=== PATIENT | male | born 1970 | race Two or more races ===

== ENCOUNTER 2023-10-03 15:40 | Inpatient (IN) | payer SELFPAY ==
[~2023-10-03] VITALS: Ht 170.2 cm; Wt 121.5 kg
[2023-10-03] MEDS ORDERED: ASPirin 325 MG TAB PO ONE (16:00)
[2023-10-03 16:24] LABS: Basophils # (auto) 0 10 ^3/uL (0-0.2); Basophils % (auto) 0.4 % (0.0-2.0); Eosinophils # (auto) 0.1 10 ^3/uL (0-0.8); Hemoglobin 15.3 g/dL (13.5-17.5); Lymphocytes # (auto) 4.2 10 ^3/uL (0.4-5.4); Lymphocytes % (auto) 36.1 % (10.0-50.0); Mean Corpuscular Hemoglobin 29.5 pg (28.0-32.0); Mean Corpuscular Hgb Conc. 33.3 g/dL (32.0-36.0); Mean Corpuscular Volume 88.6 fL (80.0-100.0); Monocytes # (auto) 1.1 10 ^3/uL (0-1.3); Monocytes % (auto) 9.2 % (0.0-12.0); Neutrophils # (auto) 6.2 10 ^3/uL (1.6-8.6); Neutrophils % (auto) 53.3 % (37.0-80.0); Nucleated Red Blood Cells % 0.2 %; Red Blood Cells 5.19 10^6/uL (4.5-5.90); Red Cell Distribution Width 13.8 % (11.8-14.3); White Blood Cell 11.7 10^3/uL (4.4-10.8)
[2023-10-03 16:41] LABS: Alanine Aminotransferase 26 U/L (7-40); Albumin 4.5 g/dL (3.2-4.8); Alkaline Phosphatase 68 U/L (46-116); Anion Gap 8 (5-15); Aspartate Aminotransferase 19 U/L (13-40); BUN/Creatinine Ratio 18.9 (10.0-20.0); Blood Urea Nitrogen 17 mg/dL (9-23); Calcium 9.7 mg/dL (8.5-10.1); Carbon Dioxide 26 mmol/L (20-30); Chloride 103 mmol/L (98-107); Glucose 94 mg/dL (74-106); Potassium 4.3 mmol/L (3.5-5.1); Sodium 137 mmol/L (136-145)
[2023-10-03 16:42] LABS: Bilirubin, Total 0.4 mg/dL (0.2-1.0)
[2023-10-03] MEDS ORDERED: NITROGLYCERIN 0.4 MG SL TAB SL ONE (17:00)
[2023-10-03] MEDS ORDERED: MORPHINE SULFATE INJ 2 MG/ml SYRG IV PRN (20:45)
[2023-10-03] MEDS ORDERED: HYDROcodone-ACET 5/325MG TAB PO PRN (20:45)
[2023-10-03] MEDS ORDERED: ONDANSETRON HCL 4 MG/2 ML VIAL IV PRN (20:45)
[2023-10-03] MEDS ORDERED: NITROGLYCERIN 0.4 MG SL TAB SL PRN (20:45)
[2023-10-03] MEDS ORDERED: ACETAMINOPHEN 325 MG TAB PO PRN (20:45)
[2023-10-03] MEDS ORDERED: DOCUSATE SOD 100 MG CAP PO PRN (20:45)
[2023-10-03] MEDS ORDERED: ATOR40TA52 PO (21:41)
[2023-10-03] MEDS ORDERED: MET25T PO (21:41)
[2023-10-03] MEDS ORDERED: CLOP75TA70 PO (21:41)
[2023-10-03] MEDS ORDERED: ASPI-628 PO (21:41)
[2023-10-03] MEDS ORDERED: METOPROLOL TARTRATE 25 MG TAB PO SCH (22:00)
[2023-10-03] MEDS ORDERED: ATORVASTATIN 20 MG TAB PO SCH (22:00)
[2023-10-04 06:56] LABS: Basophils # (auto) 0.1 10 ^3/uL (0-0.2); Basophils % (auto) 0.5 % (0.0-2.0); Eosinophils # (auto) 0.1 10 ^3/uL (0-0.8); Eosinophils % (auto) 1.3 % (0.0-7.0); Hematocrit 44.2 % (41.0-53.0); Hemoglobin 14.9 g/dL (13.5-17.5); Lymphocytes # (auto) 3.5 10 ^3/uL (0.4-5.4); Lymphocytes % (auto) 33.1 % (10.0-50.0); Mean Corpuscular Hemoglobin 30.1 pg (28.0-32.0); Mean Corpuscular Hgb Conc. 33.7 g/dL (32.0-36.0); Mean Corpuscular Volume 89.3 fL (80.0-100.0); Monocytes % (auto) 9.6 % (0.0-12.0); Neutrophils # (auto) 5.9 10 ^3/uL (1.6-8.6); Neutrophils % (auto) 55.5 % (37.0-80.0); Nucleated Red Blood Cells % 0.1 %; Red Blood Cells 4.95 10^6/uL (4.5-5.90); White Blood Cell 10.5 10^3/uL (4.4-10.8)
[2023-10-04 07:04] LABS: Alanine Aminotransferase 23 U/L (7-40); Alkaline Phosphatase 60 U/L (46-116); Anion Gap 9 (5-15); Calcium 9.5 mg/dL (8.5-10.1); Carbon Dioxide 21 mmol/L (20-30); Chloride 104 mmol/L (98-107); Sodium 134 mmol/L (136-145)
[2023-10-04 07:06] LABS: BUN/Creatinine Ratio 9.8 (10.0-20.0); Blood Urea Nitrogen 9 mg/dL (9-23); Glucose 103 mg/dL (74-106)
[2023-10-04 07:08] LABS: Albumin 4.4 g/dL (3.2-4.8); Aspartate Aminotransferase 17 U/L (13-40)
[2023-10-04 07:09] LABS: Bilirubin, Total 0.8 mg/dL (0.2-1.0); Total Protein 7.3 g/dL (5.7-8.2)
[2023-10-04 08:29] VITALS: PULSE 68; RESP 18; O2SAT 98
[2023-10-04 09:00] VITALS: BP 148/100; PULSE 88; RESP 20; TEMP 98.4; O2SAT 95
[2023-10-04] MEDS: ASPirin-EC 81 mg tab PO SCH (09:33)
[2023-10-04] MEDS: CLOPIDOGREL BISULFATE 75 MG TAB PO SCH (09:33)
[2023-10-04] MEDS: METOPROLOL TARTRATE 25 MG TAB PO SCH ×2 (09:34→21:20)
[2023-10-04] MEDS ORDERED: ENOXAPARIN SOD 40 MG/0.4 ML SYRINGE SC SCH (10:00)
[2023-10-04 11:15] LABS: COVID19 ANTIGEN SOFIA FIA NEGATIVE (NEGATIVE)
[2023-10-04 11:15] LABS: Rapid Influenza A Negative (Negative); Rapid Influenza B Negative (Negative)
[2023-10-04 11:47] LABS: INR 1.06 (0.9-1.15); Partial Thromboplastin Time 33.8 SEC (24.5-34.5); Prothrombin Time 11.1 sec (9.3-11.8)
[2023-10-04 13:00] VITALS: BP 144/81; PULSE 74; RESP 20; TEMP 98; O2SAT 99
[2023-10-04] MEDS ORDERED: LISINOPRIL 5 MG TAB PO ONE (16:00)
[2023-10-04 17:00] VITALS: BP 150/102; PULSE 75; RESP 18; TEMP 98; O2SAT 93
[2023-10-04 20:00] VITALS: PULSE 68; PULSE 95; RESP 18; O2SAT 95
[2023-10-04 22:00] VITALS: BP 135/84; PULSE 79; RESP 20; TEMP 98.3; O2SAT 99
[2023-10-04] MEDS ORDERED: ATORVASTATIN 20 MG TAB PO SCH (22:00)
[2023-10-05 05:00] VITALS: BP 120/87; PULSE 86; RESP 18; TEMP 97.4; O2SAT 100
[2023-10-05 05:54] LABS: Calcium 9.4 mg/dL (8.5-10.1); Chloride 106 mmol/L (98-107); Potassium 4.4 mmol/L (3.5-5.1); Sodium 139 mmol/L (136-145)
[2023-10-05 05:55] LABS: Anion Gap 8 (5-15); Carbon Dioxide 25 mmol/L (20-30)
[2023-10-05 06:00] LABS: BUN/Creatinine Ratio 16.9 (10.0-20.0); Blood Urea Nitrogen 15 mg/dL (9-23); Glucose 101 mg/dL (74-106); Triglycerides 156 mg/dL (< 150)
[2023-10-05 06:01] LABS: Basophils # (auto) 0 10 ^3/uL (0-0.2); Basophils % (auto) 0.6 % (0.0-2.0); Eosinophils # (auto) 0.1 10 ^3/uL (0-0.8); Eosinophils % (auto) 1.5 % (0.0-7.0); Hemoglobin 14.4 g/dL (13.5-17.5); LDL Cholesterol 128 mg/dL (< 100); Lymphocytes # (auto) 2.4 10 ^3/uL (0.4-5.4); Lymphocytes % (auto) 29.2 % (10.0-50.0); Mean Corpuscular Hemoglobin 29.8 pg (28.0-32.0); Mean Corpuscular Hgb Conc. 33.5 g/dL (32.0-36.0); Mean Corpuscular Volume 89.1 fL (80.0-100.0); Monocytes # (auto) 0.8 10 ^3/uL (0-1.3); Monocytes % (auto) 10.1 % (0.0-12.0); Neutrophils # (auto) 4.9 10 ^3/uL (1.6-8.6); Neutrophils % (auto) 58.6 % (37.0-80.0); Red Blood Cells 4.82 10^6/uL (4.5-5.90); Red Cell Distribution Width 13.6 % (11.8-14.3); White Blood Cell 8.3 10^3/uL (4.4-10.8)
[2023-10-05 06:02] LABS: Cholesterol 186 mg/dL (< 200); HDL Cholesterol 31 mg/dL (40-59)
[2023-10-05] MEDS ORDERED: ADENOSINE 102 MG in GIVE UN-DILUTED 0 ML IV ONE (07:45)
[2023-10-05 08:00] VITALS: PULSE 68; PULSE 83; RESP 18; O2SAT 95
[2023-10-05 09:25] VITALS: BP 127/81; PULSE 72; RESP 20; TEMP 97.9; O2SAT 94
[2023-10-05] MEDS ORDERED: LISINOPRIL 5 MG TAB PO SCH (10:00)
[2023-10-05] MEDS: CLOPIDOGREL BISULFATE 75 MG TAB PO SCH (10:00)
[2023-10-05 10:21] VITALS: BP 140/78; PULSE 64; TEMP 36.6
[2023-10-05] MEDS: METOPROLOL TARTRATE 25 MG TAB PO SCH (11:16)
[2023-10-05] MEDS: ASPirin-EC 81 mg tab PO SCH (11:17)
[2023-10-05 12:03] LABS: Magnesium 1.9 mg/dL (1.6-2.6)
[2023-10-05 12:26] VITALS: BP 140/93; PULSE 76; RESP 20; TEMP 97.5; O2SAT 96
[2023-10-05 17:03] VITALS: BP 146/88; PULSE 82; RESP 20; TEMP 98.2; O2SAT 94
[2023-10-05] MEDS ORDERED: ATORVASTATIN 20 MG TAB PO SCH (22:00)
== END 2023-10-05 18:00 | disposition home or self-care (01) | DRG 313 ==
LOC: ER 15:40 → TELE 20:34 → TELE-WESTW 10-04 09:09
PROVIDERS: ADMIT Internal Medicine; ATTEND Emergency Medicine
DX: R07.89 Other chest pain (principal); Z68.41 Body mass index [BMI] 40.0-44.9, adult; D72.829 Elevated white blood cell count, unspecified; E66.01 Morbid (severe) obesity due to excess calories; Z20.822 Contact with and (suspected) exposure to COVID-19; I10 Essential (primary) hypertension; I25.10 Atherosclerotic heart disease of native coronary artery without angina pectoris; I25.2 Old myocardial infarction; Z91.199 Patient's noncompliance with other medical treatment and regimen due to unspecified reason; Z79.82 Long term (current) use of aspirin; Z79.899 Other long term (current) drug therapy; Z95.5 Presence of coronary angioplasty implant and graft
CPT/HCPCS: 36415; 71045; 78452; 80048; 80053; 80061; 83036; 83735; 84484; 85025; 85379; 85610; 85730; 87081; 87426; 87804; 93005; 93017; 93306; G0378; J0153

== ENCOUNTER 2025-02-19 13:55 | Inpatient (IN) | payer MEDICAID ==
[~2025-02-19] VITALS: Ht 170.2 cm; Wt 127.6 kg
[2025-02-19] MEDS: METOPROLOL TARTRATE 25 MG TAB PO SCH (03:00)
[~2025-02-19 13:55] MED LIST: ASPI-628 PO; ATOR40TA52 PO; CLOP75TA70 PO; MET25T PO
[2025-02-19 14:20] LABS: Basophils # (auto) 0.1 10 ^3/uL (0-0.2); Basophils % (auto) 0.7 % (0.0-2.0); Eosinophils # (auto) 0.1 10 ^3/uL (0-0.8); Eosinophils % (auto) 0.9 % (0.0-7.0); Hematocrit 45.6 % (41.0-53.0); Hemoglobin 15.5 g/dL (13.5-17.5); Lymphocytes # (auto) 2.4 10 ^3/uL (0.4-5.4); Lymphocytes % (auto) 23.1 % (10.0-50.0); Mean Corpuscular Hemoglobin 29.8 pg (28.0-32.0); Mean Corpuscular Volume 87.6 fL (80.0-100.0); Monocytes # (auto) 1.1 10 ^3/uL (0-1.3); Monocytes % (auto) 9.9 % (0.0-12.0); Neutrophils # (auto) 6.9 10 ^3/uL (1.6-8.6); Neutrophils % (auto) 65.4 % (37.0-80.0); Nucleated Red Blood Cells % 0.1 %; Platelet Count (auto) 227 10^3/uL (140-450); Red Blood Cells 5.21 10^6/uL (4.5-5.90); Red Cell Distribution Width 13.9 % (11.8-14.3); White Blood Cell 10.6 10^3/uL (4.4-10.8)
[2025-02-19 14:28] LABS: Chloride 107 mmol/L (98-107)
[2025-02-19 14:29] LABS: Anion Gap 8 (5-15); Carbon Dioxide 26 mmol/L (20-31); Sodium 141 mmol/L (136-145)
[2025-02-19 14:30] LABS: Calcium 9.8 mg/dL (8.7-10.4)
[2025-02-19] MEDS: ASPirin 325 MG TAB PO ONE (14:30)
[2025-02-19] MEDS: NITROGLYCERIN 0.4 MG SL TAB SL ONE (14:30)
--- NOTE | 2025-02-19 14:32 | ED.PDOC ---
HPI Comments 55 y/o M, with PMHx of CAD, HTN, HLD, and OK presents to the ED for CC of chest pain. Patient states, he has been experiencing substernal non-radiating chest pain onset, last night (02/18/25). Patient reports, symptoms to worsen with light exertion causing shortness of breath. Patient denies palpitations, headache, dizziness, nausea, or vomiting. No other symptoms or modifying factors present at this time. Chief Complaint: Chest Pain Time Seen by MD: 14:23 Primary Care Provider: NONE Reviewed Notes: Nurses Notes, Medications, Allergies Allergies: Coded Allergies: NO KNOWN ALLERGIES (Unverified , 10/03/23) Home Meds Reported Medications Aspirin (Aspirin Adult Low Dose) 81 Mg Tab, 1 TAB PO DAILY 10/03/23 Atorvastatin Calcium (ATORVASTATIN CALCIUM) 40 Mg Tab, 1 TAB PO DAILY 10/03/23 Metoprolol Tartrate (Lopressor) 25 Mg Tb, 0.5 TAB PO BID 10/03/23 Clopidogrel Bisulfate (CLOPIDOGREL) 75 Mg Tab, 1 TAB PO DAILY 10/03/23 Information Source: Patient Mode of Arrival: Ambulatory Severity: Moderate Timing: Hours Duration: Since onset Prehospital treatment: None Location: Substernal Radiation: No Radiation Onset: At Rest Cardiac Risk Factors: HTN PE Risk Factors: None History of: OK, Aspirin Modifying Factors: Nothing Associated Signs and Symptoms: SOB Past Medical History PAST MEDICAL HISTORY: CAD, High Lipids, HTN, OK Surgical History: PTCA Family History Family History: Unknown Social History Smoker: Non-Smoker Alcohol: Denies ETOH Use Drugs: Denies Drug Use Lives In: Home Constitutional: denies: chills, diaphoresis, fatigue, fever, malaise, sweats, weakness, others EENTM: denies: blurred vision, double vision, ear bleeding, ear discharge, ear drainage, ear pain, ear ringing, eye pain, eye redness, hearing loss, mouth pain, mouth swelling, nasal discharge, nose bleeding, nose congestion, nose pain, photophobia, tearing, throat pain, throat swelling, voice changes, others Respiratory: reports: shortness of breath; denies: cough, hemoptysis, orthopnea, SOB at rest, SOB with excertion, stridor, wheezing, others Cardiovascular: reports: chest pain; denies: dizzy spells, diaphoresis, Dyspnea on exertion, edema, irregular heart beat, left arm pain, lightheadedness, palpitations, PND, syncope, others Gastrointestinal: denies: abdomen distended, abdominal pain, blood streaked bowels, constipated, diarrhea, dysphagia, difficulty swallowing, hematemesis, melena, nausea, poor appetite, poor fluid intake, rectal bleeding, rectal pain, vomiting, others Genitourinary: denies: burning, dysuria, flank pain, frequency, hematuria, incontinence, penile discharge, penile sore, pain, testicle pain, testicle swelling, urgency, others Neurological: denies: dizziness, fainting, headache, left sided numbness, left sided weakness, numbness, paresthesia, pre-existing deficit, right sided num bness, right sided weakness, seizure, speech problems, tingling, tremors, weakness, others Musculoskeletal: denies: back pain, gout, joint pain, joint swelling, muscle pain, muscle stiffness, neck pain, others Integumetry: denies: bruises, change in color, change in hair/nails, dryness, laceration, lesions, lumps, rash, wounds, others Allergic/Immunocompromised: denies: Difficulty Healing, Frequent Infections, Hives, Itching, others Hematologic/Lymphatic: denies: anemia, blood clots, easy bleeding, easy bruising, swollen glands, others Endocrine: denies: excessive hunger, excessive sweating, excessive thirst, excessive urination, flushing, intolerance to cold, intolerance to heat, unexplained weight gain, unexplained weight loss, others Psychiatric: denies: anxiety, bipolar disorder, depression, hopeless, panic disorder, schizophrenia, sleepless, suicidal, others All Other Systems: Reviewed and Negative Physical Exam General Appearance: Moderate Distress HEENT: Normal ENT Inspection, Pharynx Normal, TMs Normal Neck: Full Range of Motion, Non-Tender, Normal, Normal Inspection Respiratory: Chest Non-Tender, Lungs Clear, No Accessory Muscle Use, No Respiratory Distress, Normal Breath Sounds Cardiovascular: No Edema, No JVD, No Murmur, No Gallop, Normal Peripheral Pulses, Regular Rate/Rhythm Breast Exam: Deferred Gastrointestinal: No Organomegaly, Non Tender, No Pulsatile Mass, Normal Bowel Sounds, Soft Genitalia: Deferred Pelvic: Deferred Rectal: Deferred Extremities: No calf tenderness, Normal capillary refill, Normal inspection, Normal range of motion, Non-tender, No pedal edema Musculoskeletal : Apperance: Normal Neurologic: Alert, systems program manager II-XII nml as Tested, No Motor Deficits, Normal Affect, Normal Mood, No Sensory Deficits Cerebellar Function: Normal Reflexes: Normal Skin: Dry, Normal Color, Warm Peripheral Pulses: 3+ Radial (R), 3+ Radial (L) Lymphatic: No Adenopathy EKG EKG : Pulse Rate (adult): 115 Canones: Normal Cardiac Rhythm: NSR Block: None Hypertrophy: None ST: Normal Was a procedure done? Was a procedure done?: No CP Differential Dx Differential Diagnosis: A-fib, A-Flutter, Angina, Anxiety / Panic Attack, Atrial Dysrhythmia, Electrolyte Disorder, Sinus Tachycardia Differential Diagnosis: HTN Essential, HTN Accelerated Differential Diagnosis: Chest Wall Pain, Costochondritis, Pneumonia X-Ray, Labs, Meds, VS Vital Signs Date Time Temp Pulse Resp B/P (MAP) Pulse Ox O2 Delivery O2 Flow Rate FiO2 02/19/25 16:20 Room Air* 0 21 02/19/25 16:20 98.1 86 18 138/77 (97) 98 98.1 02/19/25 14:50 103 02/19/25 14:31 115 02/19/25 14:01 115 02/19/25 13:56 97.1 117 16 143/88 (106) 96 97.1 Lab Test 02/19/25 15:00 02/19/25 14:10 Range/Units Troponin I High Sensitivity 6 6 </=54 ng/L White Blood Count 10.6 4.4-10.8 10^3/uL Red Blood Count 5.21 4.5-5.90 10^6/uL Hemoglobin 15.5 13.5-17.5 g/dL Hematocrit 45.6 41.0-53.0 % Mean Corpuscular Volume 87.6 80.0-100.0 fL Mean Corpuscular Hemoglobin 29.8 28.0-32.0 pg Mean Corpuscular Hemoglobin Concent 34.0 32.0-36.0 g/dL Red Cell Distribution Width 13.9 11.8-14.3 % Platelet Count 227 140-450 10^3/uL Mean Platelet Volume 9.3 6.9-10.8 fL Neutrophils (%) (Auto) 65.4 37.0-80.0 % Lymphocytes (%) (Auto) 23.1 10.0-50.0 % Monocytes (%) (Auto) 9.9 0.0-12.0 % Eosinophils (%) (Auto) 0.9 0.0-7.0 % Basophils (%) (Auto) 0.7 0.0-2.0 % Neutrophils # (Auto) 6.9 1.6-8.6 10 ^3/uL Lymphocytes # (Auto) 2.4 0.4-5.4 10 ^3/uL Monocytes # (Auto) 1.1 0-1.3 10 ^3/uL Eosinophils # (Auto) 0.1 0-0.8 10 ^3/uL Basophils # (Auto) 0.1 0-0.2 10 ^3/uL Nucleated Red Blood Cells 0.1 % Sodium Level 141 136-145 mmol/L Potassium Level 4.0 3.5-5.1 mmol/L Chloride Level 107 98-107 mmol/L Carbon Dioxide Level 26 20-31 mmol/L Anion Gap 8 5-15 Blood Urea Nitrogen 13 9-23 mg/dL Creatinine 0.91 0.700-1.30 mg/dL Glomerular Filtration Rate Calc 101 >90 mL/min BUN/Creatinine Ratio 14.3 10.0-20.0 Serum Glucose 126 H 74-106 mg/dL Calcium Level 9.8 8.7-10.4 mg/dL Patient alert. Complaining of chest pain. Vitals stable. Answering questions. EKG reviewed does not show any acute changes. History of coronary artery disease. Has hypertension. Has risk factors. Echocardiogram. Cardiology consultation. Explained to the patient. Continue cardiac monitoring. Time of 1ST Reevaluation: 14:53 Reevaluation 1ST: Unchanged Patient Education/Counseling: Diagnosis, Treatment Family Education/Counseling: No Family Present Departure 1 Departure Time of Disposition: 16:51 Impression: Primary Impression: Chest pain of unknown etiology Disposition: 09 ADMITTED INPATIENT Admit to: Med Surg Condition: Guarded Critical Care Note Critical Care Time?: Yes (90 min-critical care time only) Critical care comment: Continues to have chest pain Stability Stability form required: No Heart Score Heart Score: Heart Score Response (Comments) Value History N/A 0 EKG N/A 0 Age N/A 0 Risk Factors N/A 0 Troponin N/A 0 Total 0 I personally scribed for RYLAND SINGH MD ([email or web address]) on 02/19/25 at 14:31. E lectronically submitted by Emmie Patiño ([email or web address]). RYLAND SINGH MD February 19, 2025 14:31
[2025-02-19 14:35] LABS: BUN/Creatinine Ratio 14.3 (10.0-20.0); Blood Urea Nitrogen 13 mg/dL (9-23)
[2025-02-19 14:36] LABS: Glucose 126 mg/dL (74-106)
--- NOTE | 2025-02-19 14:51 | ECG ---
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
--- NOTE | 2025-02-19 17:26 | DVHHP2 ---
Review of Systems Allergies: Coded Allergies: NO KNOWN ALLERGIES (Unverified , 10/03/23) Exam Vital Signs Vital Signs Date Time Temp Pulse Resp B/P (MAP) Pulse Ox O2 Delivery O2 Flow Rate FiO2 02/19/25 16:20 Room Air* 0 21 02/19/25 16:20 98.1 86 18 138/77 (97) 98 98.1 Labs/Xrays Labs Test 02/19/25 15:00 02/19/25 14:10 Range/Units Troponin I High Sensitivity 6 </=54 ng/L White Blood Count 10.6 4.4-10.8 10^3/uL Red Blood Count 5.21 4.5-5.90 10^6/uL Hemoglobin 15.5 13.5-17.5 g/dL Hematocrit 45.6 41.0-53.0 % Mean Corpuscular Volume 87.6 80.0-100.0 fL Mean Corpuscular Hemoglobin 29.8 28.0-32.0 pg Mean Corpuscular Hemoglobin Concent 34.0 32.0-36.0 g/dL Red Cell Distribution Width 13.9 11.8-14.3 % Platelet Count 227 140-450 10^3/uL Mean Platelet Volume 9.3 6.9-10.8 fL Neutrophils (%) (Auto) 65.4 37.0-80.0 % Lymphocytes (%) (Auto) 23.1 10.0-50.0 % Monocytes (%) (Auto) 9.9 0.0-12.0 % Eosinophils (%) (Auto) 0.9 0.0-7.0 % Basophils (%) (Auto) 0.7 0.0-2.0 % Neutrophils # (Auto) 6.9 1.6-8.6 10 ^3/uL Lymphocytes # (Auto) 2.4 0.4-5.4 10 ^3/uL Monocytes # (Auto) 1.1 0-1.3 10 ^3/uL Eosinophils # (Auto) 0.1 0-0.8 10 ^3/uL Basophils # (Auto) 0.1 0-0.2 10 ^3/uL Nucleated Red Blood Cells 0.1 % Sodium Level 141 136-145 mmol/L Potassium Level 4.0 3.5-5.1 mmol/L Chloride Level 107 98-107 mmol/L Carbon Dioxide Level 26 20-31 mmol/L Anion Gap 8 5-15 Blood Urea Nitrogen 13 9-23 mg/dL Creatinine 0.91 0.700-1.30 mg/dL Glomerular Filtration Rate Calc 101 >90 mL/min BUN/Creatinine Ratio 14.3 10.0-20.0 Serum Glucose 126 H 74-106 mg/dL Calcium Level 9.8 8.7-10.4 mg/dL Assessment/Plan Assessment/Plan acute acs r/o nstemi ekg no stemi, and trop negative x2 ordered echo fu results ordered cards consult fu results ordered asa atorvastatin ordered Echocardiogram follow-up results ordered ptinr and d dimer ordered morphine as needed for pain, ordered nitro prn chronic problems cad htn hld mi fen/ppx Protonix lovenox cardiac diet hl scd discharge plan admit to tele cards consults AUGUSTO WILKES DNP February 19, 2025 17:26
--- NOTE | 2025-02-19 17:57 | DVHHP2 ---
Admitting Diagnosis: Chest Pain History of Present Illness Patient is a 55 y/o male, with PMHx of [place], HLD, HTN, and CAD who presents to the ED for CC of chest pain. Patient states, he has been experiencing substernal non-radiating chest pain that started last night (02/18). Patient states SOB worsens with light exertion. No other symptoms or modifying factors present at this time. Patient denies vomiting, nausea, dizziness, headaches, or palpitations. While in the emergency department the patient was evaluated by the provider, As per provider: Labs, vital signs, and imagining monitored. Patient will be admitted for further evaluation and treatment. I discussed admission with the patient/family and is in agreement to treatment plan. Patient Family History: Patient reports no known family medical history. Allergies: Coded Allergies: NO KNOWN ALLERGIES (Unverified , 10/03/23) Home Meds Reported Medications Aspirin (Aspirin Adult Low Dose) 81 Mg Tab, 1 TAB PO DAILY 10/03/23 Atorvastatin Calcium (ATORVASTATIN CALCIUM) 40 Mg Tab, 1 TAB PO DAILY 10/03/23 Metoprolol Tartrate (Lopressor) 25 Mg Tb, 0.5 TAB PO BID 10/03/23 Clopidogrel Bisulfate (CLOPIDOGREL) 75 Mg Tab, 1 TAB PO DAILY 10/03/23 Current Medications Current Medications Medications (Trade) Dose Ordered Sig/Hansel Route PRN Reason Start Time Stop Time Status Last Admin Acetaminophen/ Hydrocodone Bitart ([place] 5/325MG Tab) 1 tab Q4HP PRN PO MODERATE PAIN (4-6 PAIN SCALE) 02/19/25 18:00 Temazepam (Restoril) 15 mg QHSP PRN PO FOR INSOMNIA 02/19/25 18:00 Ondansetron HCl (Zofran) 4 mg Q4HP PRN IV NAUSEA / VOMITING 02/19/25 18:00 Docusate Sodium (Colace Capsule) 100 mg BIDPRN PRN PO FOR CONSTIPATION 02/19/25 18:00 Enoxaparin Sodium (Lovenox) 40 mg DAILY SC 02/20/25 10:00 02/19/25 17:59 DC Acetaminophen (Tylenol Tablet) 650 mg Q6HP PRN PO PAIN SCALE 1-3 OR TEMP>100.4 02/19/25 18:00 Morphine Sulfate 2 mg Q4HPRN PRN IV SEVERE PAIN (7-10 PAIN SCALE) 02/19/25 18:00 Nitroglycerin (Ntrostat Sublingual) 0.4 mg Q5MIN PRN SL FOR CHEST PAIN 02/19/25 18:00 Pantoprazole Sodium (Protonix Tablet) 40 mg DAILY PO 02/20/25 10:00 Nitroglycerin (Ntrostat Sublingual) 0.4 mg Q5MINP PRN SL FOR CHEST PAIN 02/19/25 18:00 UNV Morphine Sulfate 2 mg Q30M PRN IV FOR CHEST PAIN 02/19/25 18:00 Aspirin (Ecotrin Enteric Coated Tablet) 81 mg DAILY PO 02/20/25 10:00 Clopidogrel Bisulfate (Plavix) 75 mg DAILY PO 02/20/25 10:00 Metoprolol Tartrate (Lopressor Tablet) 12.5 mg BID PO 02/19/25 22:00 Atorvastatin Calcium (Lipitor) 40 mg HS PO 02/20/25 22:00 Review of Systems Constitutional: denies chills, denies fever, denies malaise Eyes: denies eye pain, denies vision change ENT: denies ear pain, denies headache, denies nasal congestion, denies painful swallowing, denies voice change Cardiovascular: denies chest pain, denies edema, denies orthopnea, denies palpitations, denies paroxysmal nocturnal dyspnea Respiratory: denies cough, denies shortness of breath Gastrointestinal: denies constipation, denies diarrhea, denies nausea, denies vomiting Genitourinary: denies dysuria, denies frequent urination, denies urethral discharge Musculoskeletal: denies back pain, denies joint pain, denies muscle pain Skin: denies bruising, denies itching, denies rash Neurological: denies focal weakness, denies headache, denies sensory changes Psychiatric: denies anxiety, denies depression Endocrine: denies polydipsia, denies polyuria Hematologic/Lymphatic: denies easy bleeding, denies easy bruising, denies enlarged lymph nodes Allergic/Immunologic: denies allergy, denies hives Vital Signs Vital Signs Date Time Temp Pulse Resp B/P (MAP) Pulse Ox O2 Delivery O2 Flow Rate FiO2 02/19/25 16:20 Room Air* 0 21 02/19/25 16:20 98.1 86 18 138/77 (97) 98 98.1 Physical Exam General Appearance: alert, no distress HEENT: EOMI, PERRLA, normal external inspect of ears, no icterus, no nasal drainage Neck: no carotid bruit, no jugular venous distention (JVD), no lymphadenopathy Chest: normal thorax Respiratory: clear to auscultation, normal air movement Cardiovascular: regular rate and rhythm, no diastolic murmur, no jugular venous distention (JVD), no rub, no systolic murmur Abdominal: soft, no hepatomegaly, no mass, no splenomegaly, no tenderness Genitourinary: grossly normal external Musculoskeletal: no joint tenderness, no swelling Extremities: normal pulses, no calf tenderness, no clubbing, no cyanosis, no edema Skin: no bruising, no jaundice, no rash Neurological: alert, No focal deficit Results Labs Test 02/19/25 15:00 02/19/25 14:10 Range/Units Troponin I High Sensitivity 6 </=54 ng/L White Blood Count 10.6 4.4-10.8 10^3/uL Red Blood Count 5.21 4.5-5.90 10^6/uL Hemoglobin 15.5 13.5-17.5 g/dL Hematocrit 45.6 41.0-53.0 % Mean Corpuscular Volume 87.6 80.0-100.0 fL Mean Corpuscular Hemoglobin 29.8 28.0-32.0 pg Mean Corpuscular Hemoglobin Concent 34.0 32.0-36.0 g/dL Red Cell Distribution Width 13.9 11.8-14.3 % Platelet Count 227 140-450 10^3/uL Mean Platelet Volume 9.3 6.9-10.8 fL Neutrophils (%) (Auto) 65.4 37.0-80.0 % Lymphocytes (%) (Auto) 23.1 10.0-50.0 % Monocytes (%) (Auto) 9.9 0.0-12.0 % Eosinophils (%) (Auto) 0.9 0.0-7.0 % Basophils (%) (Auto) 0.7 0.0-2.0 % Neutrophils # (Auto) 6.9 1.6-8.6 10 ^3/uL Lymphocytes # (Auto) 2.4 0.4-5.4 10 ^3/uL Monocytes # (Auto) 1.1 0-1.3 10 ^3/uL Eosinophils # (Auto) 0.1 0-0.8 10 ^3/uL Basophils # (Auto) 0.1 0-0.2 10 ^3/uL Nucleated Red Blood Cells 0.1 % Sodium Level 141 136-145 mmol/L Potassium Level 4.0 3.5-5.1 mmol/L Chloride Level 107 98-107 mmol/L Carbon Dioxide Level 26 20-31 mmol/L Anion Gap 8 5-15 Blood Urea Nitrogen 13 9-23 mg/dL Creatinine 0.91 0.700-1.30 mg/dL Glomerular Filtration Rate Calc 101 >90 mL/min BUN/Creatinine Ratio 14.3 10.0-20.0 Serum Glucose 126 H 74-106 mg/dL Calcium Level 9.8 8.7-10.4 mg/dL Plan 1. unstable Angina Monitor, Cardiology consult, echocardiogram, tend troponin, monitor EKG 2. Morbid Obesity Monitor, PPI, DVT prophylaxis 3. CAD Monitor, cardiology consult 4. Benign essential hypertension Monitor, PPI Plan discussed with: Patient, Other GUTIERREZ GODWIN NP February 19, 2025 17:57
[2025-02-19] MEDS ORDERED: DOCUSATE SOD 100 MG CAP PO PRN (18:00)
[2025-02-19] MEDS ORDERED: TEMAZEPAM 15 MG CAP PO PRN (18:00)
[2025-02-19] MEDS ORDERED: NITROGLYCERIN 0.4 MG SL TAB SL PRN ×2 (18:00)
[2025-02-19] MEDS ORDERED: MORPHINE SULFATE 4 MG/ML SYR/VIAL IV PRN (18:00)
[2025-02-19] MEDS ORDERED: MORPHINE SULFATE INJ 2 MG/ml SYRG IV PRN (18:00)
[2025-02-19] MEDS ORDERED: ONDANSETRON HCL 4 MG/2 ML VIAL IV PRN (18:00)
[2025-02-19] MEDS ORDERED: HYDROcodone-ACET 5/325MG TAB PO PRN (18:00)
[2025-02-20] VITALS (8 sets, daily range): BP systolic 118–145; BP diastolic 81–91; PULSE 77–95; RESP 17–19; TEMP 97.4–98; O2SAT 94–97
[2025-02-20] MEDS: ACETAMINOPHEN 325 MG TAB PO PRN (02:19)
[2025-02-20 06:16] LABS: Basophils # (auto) 0 10 ^3/uL (0-0.2); Basophils % (auto) 0.3 % (0.0-2.0); Eosinophils # (auto) 0.1 10 ^3/uL (0-0.8); Eosinophils % (auto) 1.5 % (0.0-7.0); Hematocrit 41.7 % (41.0-53.0); Hemoglobin 13.9 g/dL (13.5-17.5); Lymphocytes # (auto) 2.7 10 ^3/uL (0.4-5.4); Lymphocytes % (auto) 31.3 % (10.0-50.0); Mean Corpuscular Hemoglobin 29.6 pg (28.0-32.0); Mean Corpuscular Hgb Conc. 33.4 g/dL (32.0-36.0); Mean Corpuscular Volume 88.8 fL (80.0-100.0); Monocytes # (auto) 0.8 10 ^3/uL (0-1.3); Monocytes % (auto) 9.3 % (0.0-12.0); Neutrophils # (auto) 4.9 10 ^3/uL (1.6-8.6); Neutrophils % (auto) 57.6 % (37.0-80.0); Nucleated Red Blood Cells % 0.2 %; Platelet Count (auto) 188 10^3/uL (140-450); Red Cell Distribution Width 14.3 % (11.8-14.3); White Blood Cell 8.5 10^3/uL (4.4-10.8)
[2025-02-20 06:39] LABS: Alanine Aminotransferase 19 U/L (7-40); Albumin 3.9 g/dL (3.2-4.8); Alkaline Phosphatase 49 U/L (46-116); Anion Gap 7 (5-15); Aspartate Aminotransferase 15 U/L (13-40); BUN/Creatinine Ratio 14.6 (10.0-20.0); Blood Urea Nitrogen 14 mg/dL (9-23); Calcium 8.9 mg/dL (8.7-10.4); Carbon Dioxide 25 mmol/L (20-31); Chloride 107 mmol/L (98-107); Potassium 3.8 mmol/L (3.5-5.1); Sodium 139 mmol/L (136-145); Total Protein 6.4 g/dL (5.7-8.2)
[2025-02-20 06:40] LABS: Bilirubin, Total 0.4 mg/dL (0.2-1.0)
[2025-02-20 06:49] LABS: Glucose 143 mg/dL (74-106)
--- NOTE | 2025-02-20 07:12 | DVHINCON2 ---
Date of service: February 20, 2025 History of Present Illness HPI Patient is a 55-year-old gentleman who presented with atypical chest discomfort. There is some positioned to the chest discomfort. It can be elicited with pressing on the middle of the sternum. Cardiology was involved for cardiac aspects of care. Home Meds Reported Medications Aspirin (Aspirin Adult Low Dose) 81 Mg Tab, 1 TAB PO DAILY 10/03/23 Atorvastatin Calcium (ATORVASTATIN CALCIUM) 40 Mg Tab, 1 TAB PO DAILY 10/03/23 Metoprolol Tartrate (Lopressor) 25 Mg Tb, 0.5 TAB PO BID 10/03/23 Clopidogrel Bisulfate (CLOPIDOGREL) 75 Mg Tab, 1 TAB PO DAILY 10/03/23 Past Medical History Others Past medical history includes coronary artery disease, status post PCI, hypertension, hyperlipidemia, morbid obesity Patient Family History: Hypertension G8 MOTHER Drugs: None Lives with: With family Review of Systems All Other Systems Fourteen point review of system was performed. Relevant findings as per above and as per HPI. Otherwise negative. H&P Exam Vital Signs Vital Signs Date Time Temp Pulse Resp B/P (MAP) Pulse Ox O2 Delivery O2 Flow Rate FiO2 02/20/25 05:00 98.0 77 17 130/81 (97) 94 98.0 02/20/25 01:43 Room Air* 0 21 General Appeara: Obese Head Exam: Normal inspection Neck Exam: Normal inspection Eye Exam: bilateral eye PERRL Pulmonary/Respiratory: Lungs clear Cardiovascular/Chest: Regular rate Peripheral Pulses: 2+ carotid (R), 2+ carotid (L), 2+ femoral (R), 2+ femoral (L), 2+ dorsalis pedis (R), 2+ dorsalis pedis (L), 2+ Radial (R), 2+ Radial (L) Abdominal Exam: Normal bowel sounds, Soft Neuro/Mental St: Alert, Oriented Appearance: Appropriate appearance Eye contact/ Speech: Cooperative Labs/Xrays Labs Test 02/20/25 04:53 02/19/25 15:00 Range/Units White Blood Count 8.5 4.4-10.8 10^3/uL Red Blood Count 4.70 4.5-5.90 10^6/uL Hemoglobin 13.9 13.5-17.5 g/dL Hematocrit 41.7 41.0-53.0 % Mean Corpuscular Volume 88.8 80.0-100.0 fL Mean Corpuscular Hemoglobin 29.6 28.0-32.0 pg Mean Corpuscular Hemoglobin Concent 33.4 32.0-36.0 g/dL Red Cell Distribution Width 14.3 11.8-14.3 % Platelet Count 188 140-450 10^3/uL Mean Platelet Volume 9.7 6.9-10.8 fL Neutrophils (%) (Auto) 57.6 37.0-80.0 % Lymphocytes (%) (Auto) 31.3 10.0-50.0 % Monocytes (%) (Auto) 9.3 0.0-12.0 % Eosinophils (%) (Auto) 1.5 0.0-7.0 % Basophils (%) (Auto) 0.3 0.0-2.0 % Neutrophils # (Auto) 4.9 1.6-8.6 10 ^3/uL Lymphocytes # (Auto) 2.7 0.4-5.4 10 ^3/uL Monocytes # (Auto) 0.8 0-1.3 10 ^3/uL Eosinophils # (Auto) 0.1 0-0.8 10 ^3/uL Basophils # (Auto) 0 0-0.2 10 ^3/uL Nucleated Red Blood Cells 0.2 % Sodium Level 139 136-145 mmol/L Potassium Level 3.8 3.5-5.1 mmol/L Chloride Level 107 98-107 mmol/L Carbon Dioxide Level 25 20-31 mmol/L Anion Gap 7 5-15 Blood Urea Nitrogen 14 9-23 mg/dL Creatinine 0.96 0.700-1.30 mg/dL Glomerular Filtration Rate Calc 95 >90 mL/min BUN/Creatinine Ratio 14.6 10.0-20.0 Serum Glucose 143 H 74-106 mg/dL Calcium Level 8.9 8.7-10.4 mg/dL Total Bilirubin 0.4 0.2-1.0 mg/dL Aspartate Amino Transferase (AST) 15 13-40 U/L Alanine Aminotransferase (ALT) 19 7-40 U/L Alkaline Phosphatase 49 46-116 U/L Total Protein 6.4 5.7-8.2 g/dL Albumin 3.9 3.2-4.8 g/dL Troponin I High Sensitivity 6 </=54 ng/L Assessment/Plan Plan Patient is a 55-year-old gentleman who presented with atypical chest discomfort. There is some positioned to the chest discomfort. It can be elicited with pressing on the middle of the sternum. Cardiology was involved for cardiac aspects of care. Past medical history includes coronary artery disease, status post PCI, hypertension, hyperlipidemia, morbid obesity Echocardiogram of October 04, 2023 revealed mild concentric left ventricular hypertrophy and ejection fraction 55% Creatinine: 0.91-0.96 Potassium: 4.0-3.8 Troponin (high sensitive): 6-6 EKG revealed sinus tach with PVC and old inferior CA Echocardiogram revealed: Technically difficult study secondary to poor acoustic windows. Left ventricle: Left ventricle was normal-sized with normal systolic function. LVEF was around 55%. Even-though no gross wall motion abnormality was seen, its presence can not be ruled out on the basis of this study. Right ventricle: Right ventricle was not well visualized. Both atria were normal- sized. Aortic valve: Aortic valve was trileaflet. There was no aortic insufficiency/stenosis. There was mild mitral regurgitation. There was trace tricuspid regurgitation. Pulmonary valve was not well visualized. As there was no good tricuspid regurgitation jet, right ventricular systolic pressure could not be estimated. There was no gross sign for pulmonary hypertension. There was no pericardial effusion Patient is a 55-year-old gentleman who presented with atypical chest discomfort. He has had PCI before high sensitive troponin has been nonrevealing Atypical chest pain ACS is not considered Hypertension Hyperlipidemia Old history of coronary artery disease Morbid obesity Cardiac suggestion for management: Managed on telemetry Follow-up electrolytes and kidney function tests and correct abnormalities Request for D-dimer If D-dimer is abnormal request for CT angio of the lungs ACS is less likely Thank you for consultation Please call primary outside lighter captain (Dr. Velez) for follow-up A total of 75 minutes was spent reviewing the patient record, examining the patient, making a diagnostic and therapeutic plan, discussing this plan with medical personnel, following up on diagnostic studies and following the patient for clinical stability excluding any and all procedures. At least 50% of this time was spent in direct, [id number] contact. Thank you for allowing me to participate in this patient's care. Further recommendations will depend on patient's clinical course. Please do not hesitate to contact me if you have any questions or concerns. This medical document was created using electronic medical record system with [employer] dictation system. Although this document has been carefully reviewed, there may still be some phonetic and typographical errors. These areas are purely typographical due to the imperfection of the software programs, and do not reflect any compromise in the patient's medical care. Plan discussed with: Patient, Other (nurse) LANA CASTILLO MD February 20, 2025 07:12
[2025-02-20] MEDS ORDERED: ENOXAPARIN SOD 40 MG/0.4 ML SYRINGE SC SCH (10:00)
[2025-02-20 10:25] LABS: Hepatitis B Surface Antigen Negative (Negative)
[2025-02-20 10:29] LABS: Hepatitis C Antibody Negative (Negative)
--- NOTE | 2025-02-20 10:45 | DVHPN2 ---
Progress Note - Dictate Date Seen: February 20, 2025 Medical Necessity Reason Pt with a Central, PICC or Fol: No vital signs Vital Sign Date Time Temp Pulse Resp B/P (MAP) Pulse Ox O2 Delivery O2 Flow Rate FiO2 02/20/25 08:40 97.5 81 19 135/88 (104) 95 97.5 02/20/25 01:43 Room Air* 0 21 Total Intake and Output 02/19/25 02/19/25 02/20/25 15:00 23:00 07:00 Intake Total 600 ml Balance 600 ml medications Current Medications Medications Dose Ordered Sig/Hansel Route Start Time Stop Time Status Last Admin Dose Admin Acetaminophen/ Hydrocodone Bitart 1 tab Q4HP PRN PO 02/19/25 18:00 Temazepam 15 mg QHSP PRN PO 02/19/25 18:00 Ondansetron HCl 4 mg Q4HP PRN IV 02/19/25 18:00 Docusate Sodium 100 mg BIDPRN PRN PO 02/19/25 18:00 Acetaminophen 650 mg Q6HP PRN PO 02/19/25 18:00 02/20/25 02:19 650 MG Morphine Sulfate 2 mg Q4HPRN PRN IV 02/19/25 18:00 Nitroglycerin 0.4 mg Q5MIN PRN SL 02/19/25 18:00 Pantoprazole Sodium 40 mg DAILY PO 02/20/25 10:00 Nitroglycerin 0.4 mg Q5MINP PRN SL 02/19/25 18:00 UNV Morphine Sulfate 2 mg Q30M PRN IV 02/19/25 18:00 Aspirin 81 mg DAILY PO 02/20/25 10:00 Clopidogrel Bisulfate 75 mg DAILY PO 02/20/25 10:00 Metoprolol Tartrate 12.5 mg BID PO 02/19/25 22:00 Atorvastatin Calcium 40 mg HS PO 02/20/25 22:00 objective General Appearance: alert, no distress HEENT: EOMI, PERRLA, normal external inspect of ears, no icterus, no nasal drainage Neck: no carotid bruit, no jugular venous distention (JVD), no lymphadenopathy Chest: normal thorax Respiratory: clear to auscultation, normal air movement Cardiovascular: regular rate and rhythm, no diastolic murmur, no jugular venous distention (JVD), no rub, no systolic murmur Abdominal: soft, no hepatomegaly, no mass, no splenomegaly, no tenderness Genitourinary: grossly normal external Musculoskeletal: no joint tenderness, no swelling Extremities: normal pulses, no calf tenderness, no clubbing, no cyanosis, no edema Skin: no bruising, no jaundice, no rash Neurological: alert, No focal deficit laboratory and microbiology Laboratory Tests 02/20/25 04:53 Test 02/20/25 04:53 Range/Units Serum Glucose 143 H 74-106 mg/dL Problem List 1. unstable Angina Monitor, Cardiology consult, echocardiogram, tend troponin, monitor EKG 2. Morbid Obesity Monitor, PPI, DVT prophylaxis 3. CAD Monitor, cardiology consult 4. Benign essential hypertension Monitor, PPI Assessment/Plan Subjective: Patient is awake and alert. Objective: Patient was admitted for chest pain and shortness of breath. Patient was seen by cardiology. D-dimer is currently pending. Patient has underlying history of coronary artery disease. Troponin levels are negative. Plan: Continue current treatment. Await D-dimer results. Monitor EKG. Plan discussed with: Patient, Other GUTIERREZ GODWIN NP February 20, 2025 10:45
[2025-02-20] MEDS: PANTOPRAZOLE 40 MG TAB PO SCH (11:36)
[2025-02-20] MEDS: CLOPIDOGREL BISULFATE 75 MG TAB PO SCH (11:37)
[2025-02-20] MEDS: ASPirin-EC 81 mg tab PO SCH (11:38)
--- NOTE | 2025-02-20 13:07 | DVHSR ---
APPROVED REPORT EXAM: LIMITED Two-dimensional and M-mode echocardiogram with Doppler and color Doppler. Blood Pressure: 130/81 mmHg INDICATION CP RISK FACTORS Obesity: Height: 130, Weight: 81 DIMENSIONS LVDd5.0 (3.8-5.7cm)LA (2D)2.9 (1.9-4.0cm)Aortic Root3.5 (2.0-3.7cm) LVDs3.6 (2.5-4.0cm)LA (MM) (1.9-4.0cm)Aortic Cusp Exc1.3 (1.5-2.0cm) EF (%) 55.0 (55-70%)Rt. Atrium4.2 (1.9-4.0cm)Asc. Aorta3.5 cm IVSd1.0 (0.7-1.1cm)RV (D) (1.8-2.4cm) PWd1.1 (0.7-1.1cm) Mitral Valve MitralMitral Stenosis E wave0.89m/sMV Mean GR.mmHg A wave1.20m/sMV Peak GR.98mmHg E/A ratio0.72D MVAcm2 DECEL [id number] 1/2 Timems Aortic Valve Aortic ValveAortic Stenosis V10.85m/Elisabeth Mean GR.5mmHg V21.36m/Elisabeth Peak GR.7mmHg LVOT Diameter2.4 (1.8-2.4cm)Doppler AVA2.83cm2 Pulmonic Valve V21.18m/s Tricuspid Valve TR Velocity2.44m/s [id number] Other Information Quality : Technically LimitedRhythm : Technically limited study due to body habitus.patient position. Conclusion Technically difficult study secondary to poor acoustic windows. Left ventricle: Left ventricle was normal-sized with normal systolic function. LVEF was around 55%. Even-though no gross wall motion abnormality was seen, its presence can not be ruled out on the bas is of this study. Right ventricle: Right ventricle was not well visualized. Both atria were normal-sized. Aortic valve: Aortic valve was trileaflet. There was no aortic insufficiency/stenosis. There was mi ld mitral regurgitation. There was trace tricuspid regurgitation. Pulmonary valve was not well visu alized. As there was no good tricuspid regurgitation jet, right ventricular systolic pressure could not be es timated. There was no gross sign for pulmonary hypertension. There was no pericardial effusion
--- NOTE | 2025-02-20 14:55 | ECG ---
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
[2025-02-20] MEDS: ATORVASTATIN 20 MG TAB PO SCH (21:29)
--- NOTE | 2025-02-20 22:16 | DVHINCON2 ---
Date of service: February 20, 2025 Referring Physician Ever Reason for Consultation Chest pain History of Present Illness This is a 55 year old male with a PMH of CAD status post PCI, hypertension, hyperlipidemia, morbid obesity who presented to the ED with complaint of chest pain since last night. Chest pain is substernal, non-radiating. Endorses some SOB. CBC is unremarkable. Troponin is negative x 2 . EKG shows tachycardia at 115. Echocardiogram of October 04, 2023 revealed mild concentric left ventricular hypertrophy and ejection fraction 55%. Recent Echocardiogram revealed: Technically difficult study secondary to poor acoustic windows. Left ventricle: Left ventricle was normal-sized with normal systolic function. LVEF was around 55%. Even-though no gross wall motion abnormality was seen, its presence can not be ruled out on the basis of this study. Right ventricle: Right ventricle was not well visualized. Both atria were normal-sized. Aortic valve: Aortic valve was trileaflet. There was no aortic insufficiency/stenosis. There was mild mitral regurgitation. There was trace tricuspid regurgitation. Pulmonary valve was not well visualized. As there was no good tricuspid regurgitation jet, right ventricular systolic pressure could not be estimated. There was no gross sign for pulmonary hypertension. There was no pericardial effusion. Patient was admitted to the hospital. I am asked to consult on this patient. Family History: Hypertension G8 MOTHER Allergies: Coded Allergies: NO KNOWN ALLERGIES (Unverified , 10/03/23) Home Meds Reported Medications Aspirin (Aspirin Adult Low Dose) 81 Mg Tab, 1 TAB PO DAILY 10/03/23 Atorvastatin Calcium (ATORVASTATIN CALCIUM) 40 Mg Tab, 1 TAB PO DAILY 10/03/23 Metoprolol Tartrate (Lopressor) 25 Mg Tb, 0.5 TAB PO BID 10/03/23 Clopidogrel Bisulfate (CLOPIDOGREL) 75 Mg Tab, 1 TAB PO DAILY 10/03/23 Current Medications Current Medications Medications (Trade) Dose Ordered Sig/Hansel Route PRN Reason Start Time Stop Time Status Last Admin Enoxaparin Sodium (Lovenox) 40 mg DAILY SC 02/20/25 10:00 02/19/25 17:59 DC Pantoprazole Sodium (Protonix Tablet) 40 mg DAILY PO 02/20/25 10:00 02/20/25 11:36 Aspirin (Ecotrin Enteric Coated Tablet) 81 mg DAILY PO 02/20/25 10:00 02/20/25 11:38 Clopidogrel Bisulfate (Plavix) 75 mg DAILY PO 02/20/25 10:00 02/20/25 11:37 Metoprolol Tartrate (Lopressor Tablet) 12.5 mg BID PO 02/19/25 22:00 02/20/25 11:38 Atorvastatin Calcium (Lipitor) 40 mg HS PO 02/20/25 22:00 Review of Systems Constitutional: denies: chills, diaphoresis, fatigue, fever, malaise, sweats, weakness, others EENTM: denies: blurred vision, double vision, ear bleeding, ear discharge, ear drainage, ear pain, ear ringing, eye pain, eye redness, hearing loss, mouth pain, mouth swelling, nasal discharge, nose bleeding, nose congestion, nose pain, photophobia, tearing, throat pain, throat swelling, voice changes, others Respiratory: reports: shortness of breath; denies: cough, hemoptysis, orthopnea, SOB at rest, SOB with excertion, stridor, wheezing, others Cardiovascular: reports: chest pain; denies: dizzy spells, diaphoresis, Dyspnea on exertion, edema, irregular heart beat, left arm pain, lightheadedness, palpitations, PND, syncope, others Gastrointestinal: denies: abdomen distended, abdominal pain, blood streaked bowels, constipated, diarrhea, dysphagia, difficulty swallowing, hematemesis, melena, nausea, poor appetite, poor fluid intake, rectal bleeding, rectal pain, vomiting, others Genitourinary: denies: burning, dysuria, flank pain, frequency, hematuria, incontinence, penile discharge, penile sore, pain, testicle pain, testicle swelling, urgency, others Neurological: denies: dizziness, fainting, headache, left sided numbness, left sided weakness, numbness, paresthesia, pre-existing deficit, right sided numbness, right sided weakness, seizure, speech problems, tingling, tremors, weakness, others Musculoskeletal: denies: back pain, gout, joint pain, joint swelling, muscle pain, muscle stiffness, neck pain, others Integumetry: denies: bruises, change in color, change in hair/nails, dryness, laceration, lesions, lumps, rash, wounds, others Allergic/Immunocompromised: denies: Difficulty Healing, Frequent Infections, Hives, Itching, others Hematologic/Lymphatic: denies: anemia, blood clots, easy bleeding, easy bruising, swollen glands, others Endocrine: denies: excessive hunger, excessive sweating, excessive thirst, excessive urination, flushing, intolerance to cold, intolerance to heat, unexplained weight gain, unexplained weight loss, others Psychiatric: denies: anxiety, bipolar disorder, depression, hopeless, panic disorder, schizophrenia, sleepless, suicidal, others All Other Systems: Reviewed and Negative Vital Signs Vital Signs Date Time Temp Pulse Resp B/P (MAP) Pulse Ox O2 Delivery O2 Flow Rate FiO2 02/20/25 21:00 97.9 90 19 131/81 (98) 97 97.9 02/20/25 08:00 Room Air* 0 21 Physical Exam GENERAL: Alert and oriented x 3. No acute distress. Obese. EYES: PERRL, EOMI. Anicteric. HENT: Moist mucous membranes. LUNGS: Clear to auscultation bilaterally. CARDIOVASCULAR: Regular rate and rhythm. ABDOMEN: Soft, nontender and nondistended. EXTREMITIES: No edema. NEUROLOGIC: No focal neurological deficits. SKIN: Warm, dry. Labs/Diagnostic Data Labs Test 02/20/25 16:41 02/20/25 04:53 02/19/25 15:00 Range/Units D-Dimer, Quantitative 0.30 0.0-0.49 mg/L FEU White Blood Count 8.5 4.4-10.8 10^3/uL Red Blood Count 4.70 4.5-5.90 10^6/uL Hemoglobin 13.9 13.5-17.5 g/dL Hematocrit 41.7 41.0-53.0 % Mean Corpuscular Volume 88.8 80.0-100.0 fL Mean Corpuscular Hemoglobin 29.6 28.0-32.0 pg Mean Corpuscular Hemoglobin Concent 33.4 32.0-36.0 g/dL Red Cell Distribution Width 14.3 11.8-14.3 % Platelet Count 188 140-450 10^3/uL Mean Platelet Volume 9.7 6.9-10.8 fL Neutrophils (%) (Auto) 57.6 37.0-80.0 % Lymphocytes (%) (Auto) 31.3 10.0-50.0 % Monocytes (%) (Auto) 9.3 0.0-12.0 % Eosinophils (%) (Auto) 1.5 0.0-7.0 % Basophils (%) (Auto) 0.3 0.0-2.0 % Neutrophils # (Auto) 4.9 1.6-8.6 10 ^3/uL Lymphocytes # (Auto) 2.7 0.4-5.4 10 ^3/uL Monocytes # (Auto) 0.8 0-1.3 10 ^3/uL Eosinophils # (Auto) 0.1 0-0.8 10 ^3/uL Basophils # (Auto) 0 0-0.2 10 ^3/uL Nucleated Red Blood Cells 0.2 % Sodium Level 139 136-145 mmol/L Potassium Level 3.8 3.5-5.1 mmol/L Chloride Level 107 98-107 mmol/L Carbon Dioxide Level 25 20-31 mmol/L Anion Gap 7 5-15 Blood Urea Nitrogen 14 9-23 mg/dL Creatinine 0.96 0.700-1.30 mg/dL Glomerular Filtration Rate Calc 95 >90 mL/min BUN/Creatinine Ratio 14.6 10.0-20.0 Serum Glucose 143 H 74-106 mg/dL Calcium Level 8.9 8.7-10.4 mg/dL Total Bilirubin 0.4 0.2-1.0 mg/dL Aspartate Amino Transferase (AST) 15 13-40 U/L Alanine Aminotransferase (ALT) 19 7-40 U/L Alkaline Phosphatase 49 46-116 U/L Total Protein 6.4 5.7-8.2 g/dL Albumin 3.9 3.2-4.8 g/dL Hepatitis B Surface Antigen Negative Negative Hepatitis C Antibody Negative Negative Troponin I High Sensitivity 6 </=54 ng/L Assessment Atypical chest pain. Hypertension. Hyperlipidemia. Morbid obesity. Coronary artery disease status post PCI. Plan/Recommendation I agree with your ongoing assessment and care of plan. Telemetry reviewed. Morphine and [place] for pain management. Aspirin, Lipitor, Plavix, Metoprolol. Nitro SL. GI prophylactics. Additional plan as per the hospital course. A total of 45 minutes was spent reviewing the patient record, examining the patient, making a diagnostic and therapeutic plan, discussing this plan with medical personnel, following up on diagnostic studies and following the patient for clinical stability excluding any and all procedures. At least 50% of this time was spent in direct, [id number] contact. Plan discussed with: Patient JUSTYN ORDAZ MD February 20, 2025 21:18
[2025-02-21] VITALS (7 sets, daily range): BP systolic 119–143; BP diastolic 73–95; PULSE 55–90; RESP 16–18; TEMP 96.7–98.6; O2SAT 94–99
[2025-02-21] MEDS ORDERED: NITR0.4S29 SL (09:21)
--- NOTE | 2025-02-21 09:23 | DVHDS2 ---
Discharge Summary Date of Admission February 19, 2025 at 17:55 Date of Discharge: February 21, 2025 Labs/Diagnostic Data: Laboratory Results Test 02/20/25 16:41 02/20/25 04:53 02/19/25 15:00 D-Dimer, Quantitative 0.30 mg/L FEU (0.0-0.49) White Blood Count 8.5 10^3/uL (4.4-10.8) Red Blood Count 4.70 10^6/uL (4.5-5.90) Hemoglobin 13.9 g/dL (13.5-17.5) Hematocrit 41.7 % (41.0-53.0) Mean Corpuscular Volume 88.8 fL (80.0-100.0) Mean Corpuscular Hemoglobin 29.6 pg (28.0-32.0) Mean Corpuscular Hemoglobin Concent 33.4 g/dL (32.0-36.0) Red Cell Distribution Width 14.3 % (11.8-14.3) Platelet Count 188 10^3/uL (140-450) Mean Platelet Volume 9.7 fL (6.9-10.8) Neutrophils (%) (Auto) 57.6 % (37.0-80.0) Lymphocytes (%) (Auto) 31.3 % (10.0-50.0) Monocytes (%) (Auto) 9.3 % (0.0-12.0) Eosinophils (%) (Auto) 1.5 % (0.0-7.0) Basophils (%) (Auto) 0.3 % (0.0-2.0) Neutrophils # (Auto) 4.9 10 ^3/uL (1.6-8.6) Lymphocytes # (Auto) 2.7 10 ^3/uL (0.4-5.4) Monocytes # (Auto) 0.8 10 ^3/uL (0-1.3) Eosinophils # (Auto) 0.1 10 ^3/uL (0-0.8) Basophils # (Auto) 0 10 ^3/uL (0-0.2) Nucleated Red Blood Cells 0.2 % Sodium Level 139 mmol/L (136-145) Potassium Level 3.8 mmol/L (3.5-5.1) Chloride Level 107 mmol/L (98-107) Carbon Dioxide Level 25 mmol/L (20-31) Anion Gap 7 (5-15) Blood Urea Nitrogen 14 mg/dL (9-23) Creatinine 0.96 mg/dL (0.700-1.30) Glomerular Filtration Rate Calc 95 mL/min (>90) BUN/Creatinine Ratio 14.6 (10.0-20.0) Serum Glucose 143 mg/dL (74-106) Calcium Level 8.9 mg/dL (8.7-10.4) Total Bilirubin 0.4 mg/dL (0.2-1.0) Aspartate Amino Transferase (AST) 15 U/L (13-40) Alanine Aminotransferase (ALT) 19 U/L (7-40) Alkaline Phosphatase 49 U/L (46-116) Total Protein 6.4 g/dL (5.7-8.2) Albumin 3.9 g/dL (3.2-4.8) Hepatitis B Surface Antigen Negative (Negative) Hepatitis C Antibody Negative (Negative) Troponin I High Sensitivity 6 ng/L (</=54) Other Laboratory Tests 02/20/25 04:53 Brief Hx & Hospital Course: Patient is a 55 y/o male, with PMHx of GA, HLD, HTN, and CAD who presents to the ED for CC of chest pain. Patient states, he has been experiencing substernal non-radiating chest pain that started last night (02/18). Patient states SOB worsens with light exertion. No other symptoms or modifying factors present at this time. Patient denies vomiting, nausea, dizziness, headaches, or palpitations. While in the emergency department the patient was evaluated by the provider, As per provider: Labs, vital signs, and imagining monitored. Patient was admitted on February 19, 2025 for unstable angina. Troponin levels were negative. Patient was seen by cardiology. Echocardiogram was done. Patient was seen and evaluated by Dr. Kisha Velez. No changes to medications were done. Patient's vitals were stable. Patient was sent on as needed nitroglycerin to use as needed for chest pain. Acute coronary syndrome was ruled out. The patient received proper medical treatment and medications. Vital signs, Imaging and Laboratory Work was monitored daily. All consults recommendations were followed as provided. There were no complaints or new complaints upon discharge, all questions and concerns were answered. Patient was advised to return to the ER or call 911 if any headaches, dizziness, shortness of breath, chest pain, bleeding, fevers, or worsening of medical condition. Patient/Family was counseled about treatment plan, medications, possible side effects, patient verbalized understanding. All questions were answered to the best of my ability. The patient symptoms improved and they are okay to be DC. Condition at Discharge: Critical Final Diagnosis/Problems List Chest pain atypical, acute coronary syndrome ruled out Secondary Diagnosis: unstable Angina Morbid Obesity CAD Benign essential hypertension Discharge Disposition: Home Discharge Instruct/Medications Diet: Cardiac 2g Na,low cholest Activity: No Restrictions, As Tolerated Follow Up/Referral: pcp 1 week Discharge Statement: "Patient was advised to return to the ER or call 911 if any headaches, dizziness, shortness of breath, chest pain, abdominal pain, bleeding, fevers, or worsening of medical condition. Patient was counseled about treatment plan, medications, possible side effects, patientverbalized understanding. All questions were answered to the best of my ability. This discharge took greater then 30 minutes in planning, reviewing documentation, counseling the patient, and discussing with other team members." ASSESSMENT ASSESSMENT Assessment Chest pain atypical, acute coronary syndrome ruled out GUTIERREZ GODWIN NP February 21, 2025 09:23
--- NOTE | 2025-02-21 22:26 | DVHPN2 ---
Progress Note - Dictate Date Seen: February 21, 2025 Medical Necessity Reason Pt with a Central, PICC or Fol: No Subjective Patient was seen and evaluated in follow up. Patient complains of a headache. Patient denies any further chest pain. Patient is cardiac stable for discharge. Telemetry reviewed. vital signs Vital Sign Date Time Temp Pulse Resp B/P (MAP) Pulse Ox O2 Delivery O2 Flow Rate FiO2 02/21/25 11:29 90 94 02/21/25 10:11 124/79 02/21/25 09:00 98.6 16 98.6 02/21/25 08:00 Room Air* 0 21 Total Intake and Output 02/20/25 02/20/25 02/21/25 15:00 23:00 07:00 Intake Total 824 ml 550 ml 500 ml Balance 824 ml 550 ml 500 ml medications Current Medications Medications Dose Ordered Sig/Hansel Route Start Time Stop Time Status Last Admin Dose Admin Acetaminophen/ Hydrocodone Bitart 1 tab Q4HP PRN PO 02/19/25 18:00 Temazepam 15 mg QHSP PRN PO 02/19/25 18:00 Ondansetron HCl 4 mg Q4HP PRN IV 02/19/25 18:00 Docusate Sodium 100 mg BIDPRN PRN PO 02/19/25 18:00 Acetaminophen 650 mg Q6HP PRN PO 02/19/25 18:00 02/21/25 09:10 650 MG Morphine Sulfate 2 mg Q4HPRN PRN IV 02/19/25 18:00 Nitroglycerin 0.4 mg Q5MIN PRN SL 02/19/25 18:00 Pantoprazole Sodium 40 mg DAILY PO 02/20/25 10:00 02/21/25 09:11 40 MG Nitroglycerin 0.4 mg Q5MINP PRN SL 02/19/25 18:00 UNV Morphine Sulfate 2 mg Q30M PRN IV 02/19/25 18:00 Aspirin 81 mg DAILY PO 02/20/25 10:00 02/21/25 09:12 81 MG Clopidogrel Bisulfate 75 mg DAILY PO 02/20/25 10:00 02/21/25 09:11 75 MG Metoprolol Tartrate 12.5 mg BID PO 02/19/25 22:00 02/21/25 09:11 12.5 MG Atorvastatin Calcium 40 mg HS PO 02/20/25 22:00 02/20/25 21:29 40 MG objective GENERAL: Alert and oriented x 3. No acute distress. Obese. EYES: PERRL, EOMI. Anicteric. HENT: Moist mucous membranes. LUNGS: Clear to auscultation bilaterally. CARDIOVASCULAR: Regular rate and rhythm. ABDOMEN: Soft, nontender and nondistended. EXTREMITIES: No edema. NEUROLOGIC: No focal neurological deficits. SKIN: Warm, dry. laboratory and microbiology Laboratory Tests 02/20/25 04:53 Test 02/20/25 04:53 Range/Units Serum Glucose 143 H 74-106 mg/dL Problem List Atypical chest pain. Hypertension. Hyperlipidemia. Morbid obesity. Coronary artery disease status post PCI. Assessment/Plan Continued all current supportive medical care. Morphine and [place] for pain management. Aspirin, Lipitor, Plavix, Metoprolol. Nitro SL. GI prophylactics. Additional plan as per the hospital course. Plan discussed with: Patient JUSTYN ORDAZ MD February 21, 2025 12:03
[2025-02-22] MEDS ORDERED: ATOR40TA52 PO (14:09)
[2025-02-22] MEDS ORDERED: CLOP75TA28 PO (14:09)
== END 2025-02-21 13:09 | disposition home or self-care (01) | DRG 198 ==
LOC: ER 14:04 → OVERFLOW 17:55 → TELE-WESTW 23:59
PROVIDERS: ADMIT Nurse Practitioner; ATTEND Nurse Practitioner
DX: I25.110 Atherosclerotic heart disease of native coronary artery with unstable angina pectoris (principal); I11.9 Hypertensive heart disease without heart failure; E66.01 Morbid (severe) obesity due to excess calories; Z68.41 Body mass index [BMI] 40.0-44.9, adult; E78.5 Hyperlipidemia, unspecified; Z98.61 Coronary angioplasty status; Z82.49 Family history of ischemic heart disease and other diseases of the circulatory system; Z79.899 Other long term (current) drug therapy; Z79.82 Long term (current) use of aspirin; Z79.02 Long term (current) use of antithrombotics/antiplatelets; I25.2 Old myocardial infarction
CPT/HCPCS: 36415; 80048; 80053; 84484; 85025; 85379; 86803; 87340; 93005; 93306; 99291; 99292; G0378

== ENCOUNTER 2025-08-26 13:15 | Inpatient (IN) | payer MEDICAID ==
[~2025-08-26] VITALS: Ht 170.2 cm; Wt 121.3 kg
[~2025-08-26 13:15] MED LIST changes: +CLOP75TA28 PO; +NITR0.4S29 SL
--- NOTE | 2025-08-26 13:27 | ECG ---
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
--- NOTE | 2025-08-26 13:47 | ED.PDOC ---
HPI Comments 55y M who presents to the ED for chief complaint of chest pain. Pt states he has been having chest pain for the past 3-4 days. Pt states the pain is located across his chest, radiating to the L arm, constant, pressure like in nature, with no associated exacerbating or relieving factors. Pt has associated shortness of breath and nausea but denies any other symptoms. Pt has history of cardiac stent placed in the past. Pt has stable vitals in the ED. Pt denies any other symptoms at this time. Chief Complaint: Chest Pain Time Seen by MD: 13:41 Primary Care Provider: NONE Reviewed Notes: Nurses Notes, Medications, Allergies Allergies: Coded Allergies: NO KNOWN ALLERGIES (Unverified , 10/03/23) Home Meds Active Scripts Clopidogrel Bisulfate (Plavix) 75 Mg Tab, 1 TAB PO DAILY, #90 TAB 1 Refill Prov:GUTIERREZ GODWIN GOLF COURSE DESIGNER 02/22/25 Atorvastatin Calcium (ATORVASTATIN CALCIUM) 40 Mg Tab, 1 TAB PO QPM, #90 TAB 3 Refills Prov:GUTIERREZ GODWIN GOLF COURSE DESIGNER 02/22/25 Nitroglycerin (NTROSTAT SUBLINGUAL) 0.4 Mg Sl, 0.4 MG SL PRN for 30 Days, #30 TAB *MAY REPEAT EVERY 5 MINUTES X 3 TOTAL IF NO RELIEF, INITIATE ANALGESIC THERAPY. NOTIFY PHYSICIAN *Do not crush. Prov:GUTIERREZ GODWIN GOLF COURSE DESIGNER 02/21/25 Reported Medications Aspirin (Aspirin Adult Low Dose) 81 Mg Tab, 1 TAB PO DAILY 10/03/23 Atorvastatin Calcium (ATORVASTATIN CALCIUM) 40 Mg Tab, 1 TAB PO DAILY 10/03/23 Metoprolol Tartrate (Lopressor) 25 Mg Tb, 0.5 TAB PO BID 10/03/23 Clopidogrel Bisulfate (CLOPIDOGREL) 75 Mg Tab, 1 TAB PO DAILY 10/03/23 Information Source: Patient Mode of Arrival: Ambulatory Brought in by: self Severity: Moderate Timing: Days Duration: Since onset Prehospital treatment: None Location: Chest (R), Chest (L) Radiation: Arm (L) Quality: Sharp, Pressure Onset: At Rest Cardiac Risk Factors: Hyperlipidemia, HTN PE Risk Factors: None History of: Similar pain in past, Angioplasty Modifying Factors: Nothing Associated Signs and Symptoms: SOB, N/V Past Medical History PAST MEDICAL HISTORY: CAD, High Lipids, HTN, [place] Surgical History: PTCA Family History Family History: Unknown Social History Smoker: Non-Smoker Alcohol: Denies ETOH Use Drugs: Denies Drug Use Lives In: Home Constitutional: denies: chills, diaphoresis, fatigue, fever, malaise, sweats, weakness, others EENTM: denies: blurred vision, double vision, ear bleeding, ear discharge, ear drainage, ear pain, ear ringing, eye pain, eye redness, hearing loss, mouth pain, mouth swelling, nasal discharge, nose bleeding, nose congestion, nose pain, photophobia, tearing, throat pain, throat swelling, voice changes, others Respiratory: reports: shortness of breath; denies: cough, hemoptysis, orthopnea, SOB at rest, SOB with excertion, stridor, wheezing, others Cardiovascular: reports: chest pain; denies: dizzy spells, diaphoresis, Dyspnea on exertion, edema, irregular heart beat, left arm pain, lightheadedness, palpitations, PND, syncope, others Gastrointestinal: reports: nausea; denies: abdomen distended, abdominal pain, blood streaked bowels, constipated, diarrhea, dysphagia, difficulty swallowing, hematemesis, melena, poor appetite, poor fluid intake, rectal bleeding, rectal pain, vomiting, others Genitourinary: denies: burning, dysuria, flank pain, frequency, hematuria, incontinence, penile discharge, penile sore, pain, testicle pain, testicle swelling, urgency, others Neurological: denies: dizziness, fainting, headache, left sided numbness, left sided weakness, numbness, paresthesia, pre-existing deficit, right sided numbness, right sided weakness, seizure, speech problems, tingling, tremors, weakness, others Musculoskeletal: denies: back pain, gout, joint pain, joint swelling, muscle pain, muscle stiffness, neck pain, others Integumetry: denies: bruises, change in color, change in hair/nails, dryness, laceration, lesions, lumps, rash, wounds, others Allergic/Immunocompromised: denies: Difficulty Healing, Frequent Infections, Hives, Itching, others Hematologic/Lymphatic: denies: anemia, blood clots, easy bleeding, easy bruising, swollen glands, others Endocrine: denies: excessive hunger, excessive sweating, excessive thirst, excessive urination, flushing, intolerance to cold, intolerance to heat, unexplained weight gain, unexplained weight loss, others Psychiatric: denies: anxiety, bipolar disorder, depression, hopeless, panic disorder, schizophrenia, sleepless, suicidal, others All Other Systems: Reviewed and Negative Physical Exam General Appearance: Moderate Distress HEENT: Normal ENT Inspection, Pharynx Normal, TMs Normal Neck: Full Range of Motion, Non-Tender, Normal, Normal Inspection Respiratory: Chest Non-Tender, Lungs Clear, No Accessory Muscle Use, No Respiratory Distress, Normal Breath Sounds Cardiovascular: No Edema, No JVD, No Murmur, No Gallop, Normal Peripheral Pulses, Regular Rate/Rhythm Breast Exam: Deferred Gastrointestinal: No Organomegaly, Non Tender, No Pulsatile Mass, Normal Bowel Sounds, Soft Genitalia: Deferred Pelvic: Deferred Rectal: Deferred Extremities: No calf tenderness, Normal capillary refill, Normal inspection, Normal range of motion, Non-tender, No pedal edema Musculoskeletal : Apperance: Normal Neurologic: Alert, dispatcher service chief II-XII nml as Tested, Motor Weakness, Normal Affect, Normal Mood, No Sensory Deficits Cerebellar Function: Normal Reflexes: Normal Skin: Dry, Normal Color, Warm Lymphatic: No Adenopathy EKG EKG : Pulse Rate (adult): 89 [place]: Normal Cardiac Rhythm: NSR Block: None Hypertrophy: None ST: Normal Was a procedure done? Was a procedure done?: No CP Differential Dx Differential Diagnosis: A-fib, A-Flutter, Angina, Anxiety / Panic Attack, Atrial Dysrhythmia, Electrolyte Disorder, Heart Failure, PVC's, Sinus Tachycardia Differential Diagnosis: HTN Essential, HTN Accelerated Differential Diagnosis: Chest Wall Pain X-Ray, Labs, Meds, VS Vital Signs Date Time Temp Pulse Resp B/P (MAP) Pulse Ox O2 Delivery O2 Flow Rate FiO2 08/26/25 14:30 88 08/26/25 13:47 89 08/26/25 13:21 89 08/26/25 13:20 98.0 93 15 96 98.0 Lab Test 08/26/25 14:25 08/26/25 13:25 Range/Units Troponin I High Sensitivity 7 6 </=54 ng/L White Blood Count 10.2 4.4-10.8 10^3/uL Red Blood Count 5.03 4.5-5.90 10^6/uL Hemoglobin 15.1 13.5-17.5 g/dL Hematocrit 44.4 41.0-53.0 % Mean Corpuscular Volume 88.2 80.0-100.0 fL Mean Corpuscular Hemoglobin 30.1 28.0-32.0 pg Mean Corpuscular Hemoglobin Concent 34.1 32.0-36.0 g/dL Red Cell Distribution Width 13.5 11.8-14.3 % Platelet Count 215 140-450 10^3/uL Mean Platelet Volume 9.1 6.9-10.8 fL Neutrophils (%) (Auto) 58.4 37.0-80.0 % Lymphocytes (%) (Auto) 30.7 10.0-50.0 % Monocytes (%) (Auto) 9.8 0.0-12.0 % Eosinophils (%) (Auto) 0.7 0.0-7.0 % Basophils (%) (Auto) 0.4 0.0-2.0 % Neutrophils # (Auto) 5.9 1.6-8.6 10 ^3/uL Lymphocytes # (Auto) 3.1 0.4-5.4 10 ^3/uL Monocytes # (Auto) 1.0 0-1.3 10 ^3/uL Eosinophils # (Auto) 0.1 0-0.8 10 ^3/uL Basophils # (Auto) 0 0-0.2 10 ^3/uL Nucleated Red Blood Cells 0.1 % Sodium Level 140 136-145 mmol/L Potassium Level 4.2 3.5-5.1 mmol/L Chloride Level 103 98-107 mmol/L Carbon Dioxide Level 25 20-31 mmol/L Anion Gap 12 5-15 Blood Urea Nitrogen 15 9-23 mg/dL Creatinine 0.75 0.700-1.30 mg/dL Glomerular Filtration Rate Calc 108 >90 mL/min BUN/Creatinine Ratio 20.0 10.0-20.0 Serum Glucose 88 74-106 mg/dL Calcium Level 9.7 8.7-10.4 mg/dL PROCEDURE(s): CXRP - CHEST PORTABLE FINDINGS/IMPRESSION: LUNGS: No pleural effusion, consolidation, or pneumothorax. MEDIASTINUM: Unremarkable. BONES: No acute osseous abnormality. OTHER: None. IV Hep-Lock is being established The CBC is within normal limits The chemistry panel is within normal limits The troponin level x2 is negative The patient is being admitted at this time The patient understands and agrees with the management. Images Reviewed?: Images reviewed and evaluated by me Time of 1ST Reevaluation: 14:15 Reevaluation 1ST: Unchanged Patient Education/Counseling: Diagnosis, Treatment, Prognosis Family Education/Counseling: No Family Present SEPSIS Sepsis Screen Date sepsis recognized/suspect: Aug 26, 2025 Time Sepsis recognized/suspect: 1327 Recent Procedure: No On Antibiotic Therapy: No Respiratory Rate >20: No Heart Rate >90: No Temp<36 C (96.8 F) or >38.3 C: No SBP <90 or MAP <65 mmHG: No New Acute Mental Status Change: No Is the patient on CPAP, BIPAP,: No Physician Orders Electrocardigram (08/26/25 16:26) Urinalysis (08/26/25 13:26) Troponin-I Hs (08/26/25 16:28) Chest Portable (08/26/25 13:29) Heplock Iv (08/26/25 13:29) Editorial Assistant (08/26/25 13:29) Blood Pressure (08/26/25 13:29) Pulse Oximetry (08/26/25 13:29) Vital Signs Date Time Temp Pulse Resp B/P (MAP) Pulse Ox O2 Delivery O2 Flow Rate FiO2 08/26/25 14:30 88 08/26/25 13:47 89 08/26/25 13:21 89 08/26/25 13:20 98.0 93 15 96 98.0 Laboratory Tests Test 08/26/25 13:25 White Blood Count 10.2 10^3/uL (4.4-10.8) Departure 1 Departure Time of Disposition: 16:18 Impression: Primary Impression: Acute myocardial ischemia Disposition: 09 ADMITTED INPATIENT Admit to: [facility] Condition: Fair Critical Care Note Critical Care Time?: Yes (45 min-critical care time only) Stability Stability form required: Yes Unstable for transfer: Telemetry monitoring (Telemetry monitoring required), ED Physician Assesment (Clinical assesment) Heart Score Heart Score: Heart Score Response (Comments) Value History Moderate Suspicious 1 EKG Normal 0 Age 45-64 1 Risk Factors 1 or 2 risk factors 1 Troponin Normal limit 0 Total 3 I personally scribed for MIKAEL MYERS MD ([email or web address]) on 08/26/25 at 13:47. Electronically submitted by Sophia Johnson ([email or web address]). I personally scribed for MIKAEL MYERS MD ([email or web address]) on 08/26/25 at 14:02. E lectronically submitted by Sophia Johnson ([email or web address]). MIKAEL MYERS MD Aug 26, 2025 13:47
[2025-08-26 13:50] LABS: Hematocrit 44.4 % (41.0-53.0); Hemoglobin 15.1 g/dL (13.5-17.5); Mean Corpuscular Hemoglobin 30.1 pg (28.0-32.0); Mean Corpuscular Volume 88.2 fL (80.0-100.0); Nucleated Red Blood Cells % 0.1 %
[2025-08-26 13:56] LABS: Chloride 103 mmol/L (98-107); Potassium 4.2 mmol/L (3.5-5.1); Sodium 140 mmol/L (136-145)
--- NOTE | 2025-08-26 13:56 | DVH ---
EXAM: XY CHEST PORTABLE HISTORY: Chest pain TECHNIQUE: 1 view of the chest COMPARISON: XY CHEST PORTABLE on DOS: 10/03/23 FINDINGS/IMPRESSION: LUNGS: No pleural effusion, consolidation, or pneumothorax. MEDIASTINUM: Unremarkable. BONES: No acute osseous abnormality. OTHER: None.
[2025-08-26 13:58] LABS: Anion Gap 12 (5-15); Calcium 9.7 mg/dL (8.7-10.4); Carbon Dioxide 25 mmol/L (20-31)
[2025-08-26 14:03] LABS: BUN/Creatinine Ratio 20.0 (10.0-20.0); Blood Urea Nitrogen 15 mg/dL (9-23); Glucose 88 mg/dL (74-106)
--- NOTE | 2025-08-26 14:48 | ECG ---
[facility] Test Date: 2025-08-26 Test Time: 14:30:00 Pat Name: KIMBERLY VILLEGAS Department: ED Room: [address] [place] [address] Gender: M Juvenile Justice Officer: PATTIE : 1970 Requested By: MIKAEL MYERS Order Number: [id number] Reading MD: Germain Weir Measurements Intervals [place] Rate: 88 P: -18 HI: 154 QRS: -11 QRSD: 95 T: 19 QT: 360 QTc: 436 Interpretive Statements Sinus rhythm Probable left ventricular hypertrophy Inferior infarct, old Electronically Signed On 08-27-2025 15:07:40 PST by Germain Weir Please click the below link to view image of tracing.
[2025-08-26] MEDS ORDERED: ACETAMINOPHEN 325 MG TAB PO PRN (15:45)
[2025-08-26] MEDS ORDERED: DOCUSATE SOD 100 MG CAP PO PRN (15:45)
[2025-08-26] MEDS ORDERED: NITROGLYCERIN 0.4 MG SL TAB SL PRN ×2 (15:45)
[2025-08-26] MEDS ORDERED: MORPHINE SULFATE INJ 2 MG/ml SYRG IV PRN ×2 (15:45)
[2025-08-26] MEDS ORDERED: TEMAZEPAM 15 MG CAP PO PRN (15:45)
[2025-08-26] MEDS ORDERED: ONDANSETRON HCL 4 MG/2 ML VIAL IV PRN (15:45)
[2025-08-26] MEDS: MORPHINE SULFATE 4 MG/ML SYR/VIAL IV ONE (17:24)
[2025-08-26] MEDS: ONDANSETRON HCL 4 MG/2 ML VIAL IV ONE (17:24)
[2025-08-26 18:17] LABS: Urine Protein, UAD Negative (Negative)
[2025-08-26] MEDS: ATORVASTATIN 20 MG TAB PO SCH (19:01)
--- NOTE | 2025-08-26 21:52 | DVHHP2 ---
Admitting Diagnosis: chest pain History of Present Illness 55y M who presents for chief complaint of chest pain. Pt states he has been having chest pain for the past 3-4 days. Pt states the pain is located across his chest, radiating to the L arm, constant, pressure like in nature, with no associated exacerbating or relieving factors. Pt has associated shortness of breath and nausea but denies any other symptoms. Pt has history of cardiac stent placed in the past. Pt has stable vitals in the ED. Pt denies any other symptoms at this time. While in the emergency department the patient was evaluated by the provider, As per provider: Labs, vital signs, and imagining monitored. Patient will be admitted for further evaluation and treatment. I discussed admission with the patient/family and is in agreement to treatment plan. Patient Family History: Hypertension G8 MOTHER Allergies: Coded Allergies: NO KNOWN ALLERGIES (Unverified , 10/03/23) Home Meds Active Scripts Clopidogrel Bisulfate (Plavix) 75 Mg Tab, 1 TAB PO DAILY, #90 TAB 1 Refill Prov:GUTIERREZ GODWIN GREEN PRIZE PACKER 02/22/25 Atorvastatin Calcium (ATORVASTATIN CALCIUM) 40 Mg Tab, 1 TAB PO QPM, #90 TAB 3 Refills Prov:GUTIERREZ GODWIN GREEN PRIZE PACKER 02/22/25 Nitroglycerin (NTROSTAT SUBLINGUAL) 0.4 Mg Sl, 0.4 MG SL PRN for 30 Days, #30 TAB *MAY REPEAT EVERY 5 MINUTES X 3 TOTAL IF NO RELIEF, INITIATE ANALGESIC THERAPY. NOTIFY PHYSICIAN *Do not crush. Prov:GUTIERREZ GODWIN GREEN PRIZE PACKER 02/21/25 Reported Medications Aspirin (Aspirin Adult Low Dose) 81 Mg Tab, 1 TAB PO DAILY 10/03/23 Atorvastatin Calcium (ATORVASTATIN CALCIUM) 40 Mg Tab, 1 TAB PO DAILY 10/03/23 Metoprolol Tartrate (Lopressor) 25 Mg Tb, 0.5 TAB PO BID 10/03/23 Clopidogrel Bisulfate (CLOPIDOGREL) 75 Mg Tab, 1 TAB PO DAILY 10/03/23 Current Medications Current Medications Medications (Trade) Dose Ordered Sig/Hansel Route PRN Reason Start Time Stop Time Status Last Admin Acetaminophen/ Hydrocodone Bitart (Moosic 5/325MG Tab) 1 tab Q4HP PRN PO MODERATE PAIN (4-6 PAIN SCALE) 08/26/25 15:45 Temazepam (Restoril) 15 mg QHSP PRN PO FOR INSOMNIA 08/26/25 15:45 Ondansetron HCl (Zofran) 4 mg Q4HP PRN IV NAUSEA / VOMITING 08/26/25 15:45 Docusate Sodium (Colace Capsule) 100 mg BIDPRN PRN PO FOR CONSTIPATION 08/26/25 15:45 Enoxaparin Sodium (Lovenox) 40 mg DAILY SC 08/27/25 10:00 Acetaminophen (Tylenol Tablet) 650 mg Q6HP PRN PO PAIN SCALE 1-3 OR TEMP>100.4 08/26/25 15:45 Morphine Sulfate 2 mg Q4HPRN PRN IV SEVERE PAIN (7-10 PAIN SCALE) 08/26/25 15:45 Nitroglycerin (Ntrostat Sublingual) 0.4 mg Q5MINP PRN SL FOR CHEST PAIN 08/26/25 15:45 Morphine Sulfate 2 mg Q30M PRN IV FOR CHEST PAIN 08/26/25 15:45 Aspirin (Ecotrin Enteric Coated Tablet) 81 mg DAILY PO 08/27/25 10:00 Clopidogrel Bisulfate (Plavix) 75 mg DAILY PO 08/27/25 10:00 UNV Clopidogrel Bisulfate (Plavix) 75 mg DAILY PO 08/27/25 10:00 Metoprolol Tartrate (Lopressor Tablet) 12.5 mg BID PO 08/26/25 22:00 Nitroglycerin (Ntrostat Sublingual) 0.4 mg PRN PRN SL FOR CHEST PAIN 08/26/25 15:45 UNV Atorvastatin Calcium (Lipitor) 40 mg QPM PO 08/26/25 18:00 08/26/25 19:01 Pantoprazole Sodium (Protonix Tablet) 40 mg DAILY PO 08/27/25 10:00 Review of Systems Constitutional: denies chills, denies fever, denies malaise Eyes: denies eye pain, denies vision change ENT: denies ear pain, denies headache, denies nasal congestion, denies painful swallowing, denies voice change Cardiovascular: denies chest pain, denies edema, denies orthopnea, denies palpitations, denies paroxysmal nocturnal dyspnea Respiratory: denies cough, denies shortness of breath Gastrointestinal: denies constipation, denies diarrhea, denies nausea, denies vomiting Genitourinary: denies dysuria, denies frequent urination, denies urethral discharge Musculoskeletal: denies back pain, denies joint pain, denies muscle pain Skin: denies bruising, denies itching, denies rash Neurological: denies focal weakness, denies headache, denies sensory changes Psychiatric: denies anxiety, denies depression Endocrine: denies polydipsia, denies polyuria Hematologic/Lymphatic: denies easy bleeding, denies easy bruising, denies enlarged lymph nodes Allergic/Immunologic: denies allergy, denies hives Vital Signs Vital Signs Date Time Temp Pulse Resp B/P (MAP) Pulse Ox O2 Delivery O2 Flow Rate FiO2 08/26/25 20:54 97.9 84 16 126/84 (98) 96 97.9 08/26/25 16:09 Room Air Physical Exam General Appearance: alert, no distress HEENT: EOMI, PERRLA, normal external inspect of ears, no icterus, no nasal drainage Neck: no carotid bruit, no jugular venous distention (JVD), no lymphadenopathy Chest: normal thorax Respiratory: clear to auscultation, normal air movement Cardiovascular: regular rate and rhythm, no diastolic murmur, no jugular venous distention (JVD), no rub, no systolic murmur Abdominal: soft, no hepatomegaly, no mass, no splenomegaly, no tenderness Genitourinary: grossly normal external Musculoskeletal: no joint tenderness, no swelling Extremities: normal pulses, no calf tenderness, no clubbing, no cyanosis, no edema Skin: no bruising, no jaundice, no rash Neurological: alert, No focal deficit SEPSIS Sepsis Screen Date sepsis recognized/suspect: Aug 26, 2025 Time Sepsis recognized/suspect: 1327 Recent Procedure: No On Antibiotic Therapy: No Respiratory Rate >20: No Heart Rate >90: No Temp<36 C (96.8 F) or >38.3 C: No SBP <90 or MAP <65 mmHG: No New Acute Mental Status Change: No Is the patient on CPAP, BIPAP,: No Physician Orders Electrocardigram (08/26/25 16:26) Chest Portable (08/26/25 13:29) Heplock Iv (08/26/25 13:29) Direct Marketing Manager (08/26/25 13:29) Blood Pressure (08/26/25 13:29) Pulse Oximetry (08/26/25 13:29) Admit (08/26/25 15:34) Code Status (08/26/25 15:34) 2 Gm Sodium Diet (08/26/25 Dinner) Hydrocodone-Acet 5/325mg Tab (Moosic 32 (08/26/25 15:45) Temazepam (Restoril) (08/26/25 15:45) Ondansetron Hcl (Zofran) (08/26/25 15:45) Docusate Sodium Capsule (Colace Capsule) (08/26/25 15:45) Enoxaparin Sodium (Lovenox) (08/27/25 10:00) Complete Blood Count (08/27/25 04:00) Comprehensive Metabolic Panel (08/27/25 04:00) Condition: Fair (08/26/25 15:34) Acetaminophen Tablet (Tylenol Tablet) (08/26/25 15:45) Morphine Sulfate Injection (08/26/25 15:45) Sequential Compression Device (08/26/25 ) *Consult Dr.Mukeshchandra Jackson (08/26/25 15:34) Nitroglycerin Sublingual (Ntrostat Subli (08/26/25 15:45) Morphine Sulfate Injection (08/26/25 15:45) Stat Ekg For Chest Pain (08/26/25 15:34) Notify Md Of Changes From Base (08/26/25 15:34) Production Planner For 24 Hours (08/26/25 15:34) Emergency Dysrhythmia Protocol (08/26/25 15:34) Rhythm Strips Once Every Shift (08/26/25 15:34) Oxygen By Nasal Cannula (08/26/25 15:34) Aspirin Enteric Coated Tablet (Ecotrin E (08/27/25 10:00) Clopidogrel Bisulfate (Plavix) (08/27/25 10:00) Metoprolol Tartrate Tablet (Lopressor Ta (08/26/25 22:00) Atorvastatin (Lipitor) (08/26/25 18:00) Pantoprazole Tablet (Protonix Tablet) (08/27/25 10:00) Vital Signs Date Time Temp Pulse Resp B/P (MAP) Pulse Ox O2 Delivery O2 Flow Rate FiO2 08/26/25 20:54 97.9 84 16 126/84 (98) 96 97.9 08/26/25 18:13 98.2 84 16 131/91 (104) 96 98.2 08/26/25 16:26 80 08/26/25 16:09 84 17 96 Room Air 08/26/25 16:09 98.7 84 17 136/87 (103) 96 98.7 08/26/25 14:30 88 08/26/25 13:47 89 08/26/25 13:21 89 08/26/25 13:20 98.0 93 15 96 98.0 Laboratory Tests Test 08/26/25 13:25 White Blood Count 10.2 10^3/uL (4.4-10.8) Medications Medications Dose Ordered Sig/Hansel Route Start Time Stop Time Status Last Admin Dose Admin Atorvastatin Calcium 40 mg QPM PO 08/26/25 18:00 08/26/25 19:01 Results Labs Test 08/26/25 17:59 08/26/25 16:23 08/26/25 13:25 Range/Units Urine Color Light-yellow Yellow Urine Clarity Clear Clear Urine pH 5.5 5.0-9.0 Urine Specific [place] 1.015 1.001-1.035 Urine Protein Negative Negative Urine Ketones Negative Negative Urine Blood Negative Negative /uL Urine Nitrite Negative Negative Urine Bilirubin Negative Negative Urine Urobilinogen Normal Negative mg/dL Urine Leukocyte Esterase Negative Negative /uL Urine RBC 1 0 - 3 /hpf Urine Microscopic WBC < 1 0-3 /HPF Urine Squamous Epithelial Cells None seen <5 /hpf Urine Bacteria Few H None Seen /hpf Urine Glucose Normal Normal mg/dL Troponin I High Sensitivity 7 </=54 ng/L White Blood Count 10.2 4.4-10.8 10^3/uL Red Blood Count 5.03 4.5-5.90 10^6/uL Hemoglobin 15.1 13.5-17.5 g/dL Hematocrit 44.4 41.0-53.0 % Mean Corpuscular Volume 88.2 80.0-100.0 fL Mean Corpuscular Hemoglobin 30.1 28.0-32.0 pg Mean Corpuscular Hemoglobin Concent 34.1 32.0-36.0 g/dL Red Cell Distribution Width 13.5 11.8-14.3 % Platelet Count 215 140-450 10^3/uL Mean Platelet Volume 9.1 6.9-10.8 fL Neutrophils (%) (Auto) 58.4 37.0-80.0 % Lymphocytes (%) (Auto) 30.7 10.0-50.0 % Monocytes (%) (Auto) 9.8 0.0-12.0 % Eosinophils (%) (Auto) 0.7 0.0-7.0 % Basophils (%) (Auto) 0.4 0.0-2.0 % Neutrophils # (Auto) 5.9 1.6-8.6 10 ^3/uL Lymphocytes # (Auto) 3.1 0.4-5.4 10 ^3/uL Monocytes # (Auto) 1.0 0-1.3 10 ^3/uL Eosinophils # (Auto) 0.1 0-0.8 10 ^3/uL Basophils # (Auto) 0 0-0.2 10 ^3/uL Nucleated Red Blood Cells 0.1 % Sodium Level 140 136-145 mmol/L Potassium Level 4.2 3.5-5.1 mmol/L Chloride Level 103 98-107 mmol/L Carbon Dioxide Level 25 20-31 mmol/L Anion Gap 12 5-15 Blood Urea Nitrogen 15 9-23 mg/dL Creatinine 0.75 0.700-1.30 mg/dL Glomerular Filtration Rate Calc 108 >90 mL/min BUN/Creatinine Ratio 20.0 10.0-20.0 Serum Glucose 88 74-106 mg/dL Calcium Level 9.7 8.7-10.4 mg/dL Plan 1. Chest pain Monitor, cardiology consult, trend troponin, monitor EKG, cardiac diet 2. HLD Monitor, lipid panel 3. Morbid obesity Monitor, cardiac diet 4. CAD Monitor, cardiology consult 5. Benign essential hypertension Monitor, restart atorvastatin, antihypertensives Plan discussed with: Patient, Other GUTIERREZ GODWIN NP Aug 26, 2025 21:52
[2025-08-26] MEDS: METOPROLOL TARTRATE 25 MG TAB PO SCH (22:00)
[2025-08-26 23:35] VITALS: BP 122/86; PULSE 83; RESP 16; TEMP 97.4; O2SAT 94
[2025-08-27] VITALS (9 sets, daily range): BP systolic 108–135; BP diastolic 68–90; PULSE 70–88; RESP 15–18; TEMP 97.2–98.1; O2SAT 94–98
[2025-08-27] MEDS: HYDROcodone-ACET 5/325MG TAB PO PRN
--- NOTE | 2025-08-27 00:46 | DVHINCON2 ---
Date of service: Aug 26, 2025 Referring Physician Ever Reason for Consultation Chest pain History of Present Illness This is a 55 year old male with a PMH of CAD, High Lipids, HTN, [place] who presented to the ED with complaints of chest pain for the past 3-4 days. Patient states the pain is located across his chest, radiating to the LUE, constant, pressure like in nature, with no associated exacerbating or relieving factors. Reports associated shortness of breath and nausea. EKG is NSR at 89. Chest x-ray showed NAD. CBC is within normal limits. Chemistry panel is within normal limits. Troponin level x 2 is negative. Patient was admitted to the hospital. I am asked to consult on this patient. Family History: Hypertension G8 MOTHER Allergies: Coded Allergies: NO KNOWN ALLERGIES (Unverified , 10/03/23) Home Meds Active Scripts Clopidogrel Bisulfate (Plavix) 75 Mg Tab, 1 TAB PO DAILY, #90 TAB 1 Refill Prov:GUTIERREZ GODWIN GAMMA FACILITIES OPERATOR 02/22/25 Atorvastatin Calcium (ATORVASTATIN CALCIUM) 40 Mg Tab, 1 TAB PO QPM, #90 TAB 3 Refills Prov:GUTIERREZ GODWIN GAMMA FACILITIES OPERATOR 02/22/25 Nitroglycerin (NTROSTAT SUBLINGUAL) 0.4 Mg Sl, 0.4 MG SL PRN for 30 Days, #30 TAB *MAY REPEAT EVERY 5 MINUTES X 3 TOTAL IF NO RELIEF, INITIATE ANALGESIC THERAPY. NOTIFY PHYSICIAN *Do not crush. Prov:GUTIERREZ GODWIN GAMMA FACILITIES OPERATOR 02/21/25 Reported Medications Aspirin (Aspirin Adult Low Dose) 81 Mg Tab, 1 TAB PO DAILY 10/03/23 Atorvastatin Calcium (ATORVASTATIN CALCIUM) 40 Mg Tab, 1 TAB PO DAILY 10/03/23 Metoprolol Tartrate (Lopressor) 25 Mg Tb, 0.5 TAB PO BID 10/03/23 Clopidogrel Bisulfate (CLOPIDOGREL) 75 Mg Tab, 1 TAB PO DAILY 10/03/23 Current Medications Current Medications Medications (Trade) Dose Ordered Sig/Hansel Route PRN Reason Start Time Stop Time Status Last Admin Acetaminophen/ Hydrocodone Bitart ([place] 5/325MG Tab) 1 tab Q4HP PRN PO MODERATE PAIN (4-6 PAIN SCALE) 08/26/25 15:45 08/27/25 00:00 Temazepam (Restoril) 15 mg QHSP PRN PO FOR INSOMNIA 08/26/25 15:45 Ondansetron HCl (Zofran) 4 mg Q4HP PRN IV NAUSEA / VOMITING 08/26/25 15:45 Docusate Sodium (Colace Capsule) 100 mg BIDPRN PRN PO FOR CONSTIPATION 08/26/25 15:45 Enoxaparin Sodium (Lovenox) 40 mg DAILY SC 08/27/25 10:00 Acetaminophen (Tylenol Tablet) 650 mg Q6HP PRN PO PAIN SCALE 1-3 OR TEMP>100.4 08/26/25 15:45 Morphine Sulfate 2 mg Q4HPRN PRN IV SEVERE PAIN (7-10 PAIN SCALE) 08/26/25 15:45 Nitroglycerin (Ntrostat Sublingual) 0.4 mg Q5MINP PRN SL FOR CHEST PAIN 08/26/25 15:45 Morphine Sulfate 2 mg Q30M PRN IV FOR CHEST PAIN 08/26/25 15:45 Aspirin (Ecotrin Enteric Coated Tablet) 81 mg DAILY PO 08/27/25 10:00 Clopidogrel Bisulfate (Plavix) 75 mg DAILY PO 08/27/25 10:00 UNV Clopidogrel Bisulfate (Plavix) 75 mg DAILY PO 08/27/25 10:00 Metoprolol Tartrate (Lopressor Tablet) 12.5 mg BID PO 08/26/25 22:00 Nitroglycerin (Ntrostat Sublingual) 0.4 mg PRN PRN SL FOR CHEST PAIN 08/26/25 15:45 UNV Atorvastatin Calcium (Lipitor) 40 mg QPM PO 08/26/25 18:00 08/26/25 19:01 Pantoprazole Sodium (Protonix Tablet) 40 mg DAILY PO 08/27/25 10:00 Review of Systems Constitutional: denies chills, denies fever, denies malaise Eyes: denies eye pain, denies vision change ENT: denies ear pain, denies headache, denies nasal congestion, denies painful swallowing, denies voice change Cardiovascular: denies chest pain, denies edema, denies orthopnea, denies palpitations, denies paroxysmal nocturnal dyspnea Respiratory: denies cough, denies shortness of breath Gastrointestinal: denies constipation, denies diarrhea, denies nausea, denies vomiting Genitourinary: denies dysuria, denies frequent urination, denies urethral discharge Musculoskeletal: denies back pain, denies joint pain, denies muscle pain Skin: denies bruising, denies itching, denies rash Neurological: denies focal weakness, denies headache, denies sensory changes Psychiatric: denies anxiety, denies depression Endocrine: denies polydipsia, denies polyuria Hematologic/Lymphatic: denies easy bleeding, denies easy bruising, denies enlarged lymph nodes Allergic/Immunologic: denies allergy, denies hives Vital Signs Vital Signs Date Time Temp Pulse Resp B/P (MAP) Pulse Ox O2 Delivery O2 Flow Rate FiO2 08/26/25 23:35 97.4 83 16 122/86 (98) 94 97.4 08/26/25 16:09 Room Air Physical Exam GENERAL: Alert and oriented x 3. No acute distress. Morbid obesity. EYES: PERRL, EOMI. Anicteric. HENT: Moist mucous membranes. LUNGS: Clear to auscultation bilaterally. CARDIOVASCULAR: Regular rate and rhythm. ABDOMEN: Soft, non-tender and non-distended. EXTREMITIES: No edema. NEUROLOGIC: No focal neurological deficits. SKIN: Warm, dry. Labs/Diagnostic Data Labs Test 08/26/25 17:59 08/26/25 16:23 08/26/25 13:25 Range/Units Urine Color Light-yellow Yellow Urine Clarity Clear Clear Urine pH 5.5 5.0-9.0 Urine Specific [place] 1.015 1.001-1.035 Urine Protein Negative Negative Urine Ketones Negative Negative Urine Blood Negative Negative /uL Urine Nitrite Negative Negative Urine Bilirubin Negative Negative Urine Urobilinogen Normal Negative mg/dL Urine Leukocyte Esterase Negative Negative /uL Urine RBC 1 0 - 3 /hpf Urine Microscopic WBC < 1 0-3 /HPF Urine Squamous Epithelial Cells None seen <5 /hpf Urine Bacteria Few H None Seen /hpf Urine Glucose Normal Normal mg/dL Troponin I High Sensitivity 7 </=54 ng/L White Blood Count 10.2 4.4-10.8 10^3/uL Red Blood Count 5.03 4.5-5.90 10^6/uL Hemoglobin 15.1 13.5-17.5 g/dL Hematocrit 44.4 41.0-53.0 % Mean Corpuscular Volume 88.2 80.0-100.0 fL Mean Corpuscular Hemoglobin 30.1 28.0-32.0 pg Mean Corpuscular Hemoglobin Concent 34.1 32.0-36.0 g/dL Red Cell Distribution Width 13.5 11.8-14.3 % Platelet Count 215 140-450 10^3/uL Mean Platelet Volume 9.1 6.9-10.8 fL Neutrophils (%) (Auto) 58.4 37.0-80.0 % Lymphocytes (%) (Auto) 30.7 10.0-50.0 % Monocytes (%) (Auto) 9.8 0.0-12.0 % Eosinophils (%) (Auto) 0.7 0.0-7.0 % Basophils (%) (Auto) 0.4 0.0-2.0 % Neutrophils # (Auto) 5.9 1.6-8.6 10 ^3/uL Lymphocytes # (Auto) 3.1 0.4-5.4 10 ^3/uL Monocytes # (Auto) 1.0 0-1.3 10 ^3/uL Eosinophils # (Auto) 0.1 0-0.8 10 ^3/uL Basophils # (Auto) 0 0-0.2 10 ^3/uL Nucleated Red Blood Cells 0.1 % Sodium Level 140 136-145 mmol/L Potassium Level 4.2 3.5-5.1 mmol/L Chloride Level 103 98-107 mmol/L Carbon Dioxide Level 25 20-31 mmol/L Anion Gap 12 5-15 Blood Urea Nitrogen 15 9-23 mg/dL Creatinine 0.75 0.700-1.30 mg/dL Glomerular Filtration Rate Calc 108 >90 mL/min BUN/Creatinine Ratio 20.0 10.0-20.0 Serum Glucose 88 74-106 mg/dL Calcium Level 9.7 8.7-10.4 mg/dL Assessment Chest pain. HLD Morbid obesity. CAD. Benign essential hypertension. Plan/Recommendation I agree with your ongoing assessment and care of plan. Morphine and [place] for pain management. Aspirin, Lipitor, Plavix, Metoprolol. DVT and GI prophylactics. Nitro SL. Additional plan as per the hospital course. A total of 45 minutes was spent reviewing the patient record, examining the patient, making a diagnostic and therapeutic plan, discussing this plan with medical personnel, following up on diagnostic studies and following the patient for clinical stability excluding any and all procedures. At least 50% of this time was spent in direct, [id number] contact. Plan discussed with: Patient JUSTYN ORDAZ MD Aug 27, 2025 00:46
--- NOTE | 2025-08-27 07:43 | ECG ---
[facility] Test Date: 2025-08-26 Test Time: 16:26:08 Pat Name: KIMBERLY VILLEGAS Department: Room: [address] [place] [address] Gender: M Senior Project Manager: ANIYAH : 1970 Requested By: MIKAEL MYERS Order Number: [id number] Reading MD: Germain Weir Measurements Intervals [place] Rate: 80 P: 16 [place]: 167 QRS: -10 QRSD: 100 T: 23 QT: 380 QTc: 439 Interpretive Statements Sinus rhythm Inferior infarct, old Electronically Signed On 08-27-2025 15:07:54 PST by Germain Weir Please click the below link to view image of tracing.
[2025-08-27 07:51] LABS: Hematocrit 41.3 % (41.0-53.0); Hemoglobin 13.8 g/dL (13.5-17.5); Mean Corpuscular Hemoglobin 29.5 pg (28.0-32.0); Mean Corpuscular Volume 88.2 fL (80.0-100.0); Nucleated Red Blood Cells % 0.1 %
[2025-08-27 07:57] LABS: Alanine Aminotransferase 22 U/L (7-40); Alkaline Phosphatase 53 U/L (46-116); Anion Gap 10 (5-15); BUN/Creatinine Ratio 18.0 (10.0-20.0); Blood Urea Nitrogen 16 mg/dL (9-23); Calcium 9.2 mg/dL (8.7-10.4); Carbon Dioxide 27 mmol/L (20-31); Chloride 103 mmol/L (98-107); Potassium 4.2 mmol/L (3.5-5.1); Sodium 140 mmol/L (136-145); Total Protein 6.6 g/dL (5.7-8.2)
[2025-08-27 07:58] LABS: Albumin 3.9 g/dL (3.2-4.8); Bilirubin, Total 0.6 mg/dL (0.2-1.0)
[2025-08-27 08:04] LABS: Glucose 114 mg/dL (74-106)
[2025-08-27] MEDS: ASPirin-EC 81 mg tab PO SCH (09:45)
[2025-08-27] MEDS: CLOPIDOGREL BISULFATE 75 MG TAB PO SCH (09:46)
[2025-08-27] MEDS: PANTOPRAZOLE 40 MG TAB PO SCH (09:47)
[2025-08-27] MEDS: ENOXAPARIN SOD 40 MG/0.4 ML SYRINGE SC SCH (09:48)
[2025-08-27] MEDS ORDERED: CLOPIDOGREL BISULFATE 75 MG TAB PO SCH (10:00)
--- NOTE | 2025-08-27 15:12 | DVHHP2 ---
History of Present Illness 55y M who presents for chief complaint of chest pain. Pt states he has been havi ng chest pain for the past 3-4 days. Pt states the pain is located across his chest, radiating to the L arm, constant, pressure like in nature, with no associated exacerbating or relieving factors. Pt has associated shortness of breath and nausea but denies any other symptoms. Pt has history of cardiac stent placed in the past. Pt has stable vitals in the ED. Pt denies any other symptoms at this time. While in the emergency department the patient was evaluated by the provider, As per provider: Labs, vital signs, and imagining monitored. Patient will be admitted for further evaluation and treatment. I discussed admission with the patient/family and is in agreement to treatment plan. Patient Family History: Hypertension G8 MOTHER Allergies: Coded Allergies: NO KNOWN ALLERGIES (Unverified , 10/03/23) Home Meds Active Scripts Clopidogrel Bisulfate (Plavix) 75 Mg Tab, 1 TAB PO DAILY, #90 TAB 1 Refill Prov:GUTIERREZ GODWIN GRAIN MANAGER 02/22/25 Atorvastatin Calcium (ATORVASTATIN CALCIUM) 40 Mg Tab, 1 TAB PO QPM, #90 TAB 3 Refills Prov:GUTIERREZ GODWIN GRAIN MANAGER 02/22/25 Nitroglycerin (NTROSTAT SUBLINGUAL) 0.4 Mg Sl, 0.4 MG SL PRN for 30 Days, #30 TAB *MAY REPEAT EVERY 5 MINUTES X 3 TOTAL IF NO RELIEF, INITIATE ANALGESIC THERAPY. NOTIFY PHYSICIAN *Do not crush. Prov:GUTIERREZ GODWIN GRAIN MANAGER 02/21/25 Reported Medications Aspirin (Aspirin Adult Low Dose) 81 Mg Tab, 1 TAB PO DAILY 10/03/23 Atorvastatin Calcium (ATORVASTATIN CALCIUM) 40 Mg Tab, 1 TAB PO DAILY 10/03/23 Metoprolol Tartrate (Lopressor) 25 Mg Tb, 0.5 TAB PO BID 10/03/23 Clopidogrel Bisulfate (CLOPIDOGREL) 75 Mg Tab, 1 TAB PO DAILY 10/03/23 Current Medications Current Medications Medications (Trade) Dose Ordered Sig/Hansel Route PRN Reason Start Time Stop Time Status Last Admin Acetaminophen/ Hydrocodone Bitart ([place] 5/325MG Tab) 1 tab Q4HP PRN PO MODERATE PAIN (4-6 PAIN SCALE) 08/26/25 15:45 08/27/25 14:45 Temazepam (Restoril) 15 mg QHSP PRN PO FOR INSOMNIA 08/26/25 15:45 Ondansetron HCl (Zofran) 4 mg Q4HP PRN IV NAUSEA / VOMITING 08/26/25 15:45 Docusate Sodium (Colace Capsule) 100 mg BIDPRN PRN PO FOR CONSTIPATION 08/26/25 15:45 Enoxaparin Sodium (Lovenox) 40 mg DAILY SC 08/27/25 10:00 08/27/25 09:48 Acetaminophen (Tylenol Tablet) 650 mg Q6HP PRN PO PAIN SCALE 1-3 OR TEMP>100.4 08/26/25 15:45 Morphine Sulfate 2 mg Q4HPRN PRN IV SEVERE PAIN (7-10 PAIN SCALE) 08/26/25 15:45 Nitroglycerin (Ntrostat Sublingual) 0.4 mg Q5MINP PRN SL FOR CHEST PAIN 08/26/25 15:45 Morphine Sulfate 2 mg Q30M PRN IV FOR CHEST PAIN 08/26/25 15:45 Aspirin (Ecotrin Enteric Coated Tablet) 81 mg DAILY PO 08/27/25 10:00 08/27/25 09:45 Clopidogrel Bisulfate (Plavix) 75 mg DAILY PO 08/27/25 10:00 UNV Clopidogrel Bisulfate (Plavix) 75 mg DAILY PO 08/27/25 10:00 08/27/25 09:46 Metoprolol Tartrate (Lopressor Tablet) 12.5 mg BID PO 08/26/25 22:00 08/27/25 09:45 Nitroglycerin (Ntrostat Sublingual) 0.4 mg PRN PRN SL FOR CHEST PAIN 08/26/25 15:45 UNV Atorvastatin Calcium (Lipitor) 40 mg QPM PO 08/26/25 18:00 08/27/25 14:42 DC 08/26/25 19:01 Pantoprazole Sodium (Protonix Tablet) 40 mg DAILY PO 08/27/25 10:00 08/27/25 09:47 Atorvastatin Calcium (Lipitor) 40 mg HS PO 08/27/25 22:00 Review of Systems Constitutional: denies chills, denies fever, denies malaise Eyes: denies eye pain, denies vision change ENT: denies ear pain, denies headache, denies nasal congestion, denies painful swallowing, denies voice change Cardiovascular: denies chest pain, denies edema, denies orthopnea, denies palpitations, denies paroxysmal nocturnal dyspnea Respiratory: denies cough, denies shortness of breath Gastrointestinal: denies constipation, denies diarrhea, denies nausea, denies vomiting Genitourinary: denies dysuria, denies frequent urination, denies urethral discharge Musculoskeletal: denies back pain, denies joint pain, denies muscle pain Skin: denies bruising, denies itching, denies rash Neurological: denies focal weakness, denies headache, denies sensory changes Psychiatric: denies anxiety, denies depression Endocrine: denies polydipsia, denies polyuria Hematologic/Lymphatic: denies easy bleeding, denies easy bruising, denies enlarged lymph nodes Allergic/Immunologic: denies allergy, denies hives Vital Signs Vital Signs Date Time Temp Pulse Resp B/P (MAP) Pulse Ox O2 Delivery O2 Flow Rate FiO2 08/27/25 13:00 97.3 74 17 117/84 (95) 98 97.3 08/27/25 00:17 Room Air* 0 21 SEPSIS Sepsis Screen Date sepsis recognized/suspect: Aug 26, 2025 Time Sepsis recognized/suspect: 2053 Recent Procedure: No On Antibiotic Therapy: No Respiratory Rate >20: No Heart Rate >90: No Temp<36 C (96.8 F) or >38.3 C: No SBP <90 or MAP <65 mmHG: No New Acute Mental Status Change: No Is the patient on CPAP, BIPAP,: No Physician Orders Electrocardigram (08/26/25 13:26) Electrocardigram (08/26/25 14:26) Electrocardigram (08/26/25 16:26) Chest Portable (08/26/25 13:29) Heplock Iv (08/26/25 13:29) Fruit Room Hand (08/26/25 13:29) Blood Pressure (08/26/25 13:29) Pulse Oximetry (08/26/25 13:29) Admit (08/26/25 15:34) Code Status (08/26/25 15:34) 2 Gm Sodium Diet (08/26/25 Dinner) Hydrocodone-Acet 5/325mg Tab ([place] 5/32 (08/26/25 15:45) Temazepam (Restoril) (08/26/25 15:45) Ondansetron Hcl (Zofran) (08/26/25 15:45) Docusate Sodium Capsule (Colace Capsule) (08/26/25 15:45) Enoxaparin Sodium (Lovenox) (08/27/25 10:00) Condition: Fair (08/26/25 15:34) Acetaminophen Tablet (Tylenol Tablet) (08/26/25 15:45) Morphine Sulfate Injection (08/26/25 15:45) Sequential Compression Device (08/26/25 ) *Consult Dr.Mukeshchandra Jackson (08/26/25 15:34) Nitroglycerin Sublingual (Ntrostat Subli (08/26/25 15:45) Morphine Sulfate Injection (08/26/25 15:45) Stat Ekg For Chest Pain (08/26/25 15:34) Notify Md Of Changes From Base (08/26/25 15:34) Floorperson For 24 Hours (08/26/25 15:34) Emergency Dysrhythmia Protocol (08/26/25 15:34) Rhythm Strips Once Every Shift (08/26/25 15:34) Oxygen By Nasal Cannula (08/26/25 15:34) Aspirin Enteric Coated Tablet (Ecotrin E (08/27/25 10:00) Clopidogrel Bisulfate (Plavix) (08/27/25 10:00) Metoprolol Tartrate Tablet (Lopressor Ta (08/26/25 22:00) Pantoprazole Tablet (Protonix Tablet) (08/27/25 10:00) * Care Director Consult (08/27/25 ) Atorvastatin (Lipitor) (08/27/25 22:00) Vital Signs Date Time Temp Pulse Resp B/P (MAP) Pulse Ox O2 Delivery O2 Flow Rate FiO2 08/27/25 13:00 97.3 74 17 117/84 (95) 98 97.3 08/27/25 09:45 79 132/83 08/27/25 09:00 97.2 79 18 132/83 (99) 96 97.2 08/27/25 05:00 97.2 80 16 116/77 (90) 95 97.2 08/27/25 01:00 97.3 88 15 108/76 (87) 97 97.3 08/27/25 00:17 83 16 94 Room Air* 0 21 08/27/25 00:14 97.4 83 16 122/86 (98) 94 97.4 08/26/25 23:35 97.4 83 16 122/86 (98) 94 97.4 08/26/25 22:00 84 126/84 08/26/25 20:54 97.9 84 16 126/84 (98) 96 97.9 08/26/25 18:13 98.2 84 16 131/91 (104) 96 98.2 08/26/25 16:26 80 08/26/25 16:09 84 17 96 Room Air 08/26/25 16:09 98.7 84 17 136/87 (103) 96 98.7 08/26/25 14:30 88 08/26/25 13:47 89 08/26/25 13:21 89 08/26/25 13:20 98.0 93 15 96 98.0 Laboratory Tests Test 08/26/25 13:25 08/27/25 07:02 White Blood Count 10.2 10^3/uL (4.4-10.8) 7.7 10^3/uL (4.4-10.8) Medications Medications Dose Ordered Sig/Hansel Route Start Time Stop Time Status Last Admin Dose Admin Aspirin 81 mg DAILY PO 08/27/25 10:00 08/27/25 09:45 Clopidogrel Bisulfate 75 mg DAILY PO 08/27/25 10:00 08/27/25 09:46 Enoxaparin Sodium 40 mg DAILY SC 08/27/25 10:00 08/27/25 09:48 Pantoprazole Sodium 40 mg DAILY PO 08/27/25 10:00 08/27/25 09:47 Results Labs Test 08/27/25 07:02 08/26/25 17:59 08/26/25 16:23 Range/Units White Blood Count 7.7 4.4-10.8 10^3/uL Red Blood Count 4.68 4.5-5.90 10^6/uL Hemoglobin 13.8 13.5-17.5 g/dL Hematocrit 41.3 41.0-53.0 % Mean Corpuscular Volume 88.2 80.0-100.0 fL Mean Corpuscular Hemoglobin 29.5 28.0-32.0 pg Mean Corpuscular Hemoglobin Concent 33.5 32.0-36.0 g/dL Red Cell Distribution Width 13.8 11.8-14.3 % Platelet Count 194 140-450 10^3/uL Mean Platelet Volume 9.1 6.9-10.8 fL Neutrophils (%) (Auto) 55.6 37.0-80.0 % Lymphocytes (%) (Auto) 32.0 10.0-50.0 % Monocytes (%) (Auto) 10.7 0.0-12.0 % Eosinophils (%) (Auto) 1.3 0.0-7.0 % Basophils (%) (Auto) 0.4 0.0-2.0 % Neutrophils # (Auto) 4.3 1.6-8.6 10 ^3/uL Lymphocytes # (Auto) 2.5 0.4-5.4 10 ^3/uL Monocytes # (Auto) 0.8 0-1.3 10 ^3/uL Eosinophils # (Auto) 0.1 0-0.8 10 ^3/uL Basophils # (Auto) 0 0-0.2 10 ^3/uL Nucleated Red Blood Cells 0.1 % Sodium Level 140 136-145 mmol/L Potassium Level 4.2 3.5-5.1 mmol/L Chloride Level 103 98-107 mmol/L Carbon Dioxide Level 27 20-31 mmol/L Anion Gap 10 5-15 Blood Urea Nitrogen 16 9-23 mg/dL Creatinine 0.89 0.700-1.30 mg/dL Glomerular Filtration Rate Calc 102 >90 mL/min BUN/Creatinine Ratio 18.0 10.0-20.0 Serum Glucose 114 H 74-106 mg/dL Calcium Level 9.2 8.7-10.4 mg/dL Total Bilirubin 0.6 0.2-1.0 mg/dL Aspartate Amino Transferase (AST) 17 13-40 U/L Alanine Aminotransferase (ALT) 22 7-40 U/L Alkaline Phosphatase 53 46-116 U/L Total Protein 6.6 5.7-8.2 g/dL Albumin 3.9 3.2-4.8 g/dL Urine Color Light-yellow Yellow Urine Clarity Clear Clear Urine pH 5.5 5.0-9.0 Urine Specific [place] 1.015 1.001-1.035 Urine Protein Negative Negative Urine Ketones Negative Negative Urine Blood Negative Negative /uL Urine Nitrite Negative Negative Urine Bilirubin Negative Negative Urine Urobilinogen Normal Negative mg/dL Urine Leukocyte Esterase Negative Negative /uL Urine RBC 1 0 - 3 /hpf Urine Microscopic WBC < 1 0-3 /HPF Urine Squamous Epithelial Cells None seen <5 /hpf Urine Bacteria Few H None Seen /hpf Urine Glucose Normal Normal mg/dL Troponin I High Sensitivity 7 </=54 ng/L GUTIERREZ GODWIN GRAIN MANAGER Aug 27, 2025 15:12
--- NOTE | 2025-08-27 15:13 | DVHPN2 ---
Progress Note - Dictate Date Seen: Aug 27, 2025 Medical Necessity Reason Pt with a Central, PICC or Fol: No vital signs Vital Sign Date Time Temp Pulse Resp B/P (MAP) Pulse Ox O2 Delivery O2 Flow Rate FiO2 08/27/25 13:00 97.3 74 17 117/84 (95) 98 97.3 08/27/25 00:17 Room Air* 0 21 Total Intake and Output 08/26/25 08/26/25 08/27/25 15:00 23:00 07:00 Intake Total 300 ml Balance 300 ml medications Current Medications Medications Dose Ordered Sig/Hansel Route Start Time Stop Time Status Last Admin Dose Admin Acetaminophen/ Hydrocodone Bitart 1 tab Q4HP PRN PO 08/26/25 15:45 08/27/25 14:45 Temazepam 15 mg QHSP PRN PO 08/26/25 15:45 Ondansetron HCl 4 mg Q4HP PRN IV 08/26/25 15:45 Docusate Sodium 100 mg BIDPRN PRN PO 08/26/25 15:45 Enoxaparin Sodium 40 mg DAILY SC 08/27/25 10:00 08/27/25 09:48 Acetaminophen 650 mg Q6HP PRN PO 08/26/25 15:45 Morphine Sulfate 2 mg Q4HPRN PRN IV 08/26/25 15:45 Nitroglycerin 0.4 mg Q5MINP PRN SL 08/26/25 15:45 Morphine Sulfate 2 mg Q30M PRN IV 08/26/25 15:45 Aspirin 81 mg DAILY PO 08/27/25 10:00 08/27/25 09:45 Clopidogrel Bisulfate 75 mg DAILY PO 08/27/25 10:00 UNV Clopidogrel Bisulfate 75 mg DAILY PO 08/27/25 10:00 08/27/25 09:46 Metoprolol Tartrate 12.5 mg BID PO 08/26/25 22:00 08/27/25 09:45 Nitroglycerin 0.4 mg PRN PRN SL 08/26/25 15:45 UNV Pantoprazole Sodium 40 mg DAILY PO 08/27/25 10:00 08/27/25 09:47 Atorvastatin Calcium 40 mg HS PO 08/27/25 22:00 objective General Appearance: alert, no distress HEENT: EOMI, PERRLA, normal external inspect of ears, no icterus, no nasal drainage Neck: no carotid bruit, no jugular venous distention (JVD), no lymphadenopathy Chest: normal thorax Respiratory: clear to auscultation, normal air movement Cardiovascular: regular rate and rhythm, no diastolic murmur, no jugular venous distention (JVD), no rub, no systolic murmur Abdominal: soft, no hepatomegaly, no mass, no splenomegaly, no tenderness Genitourinary: grossly normal external Musculoskeletal: no joint tenderness, no swelling Extremities: normal pulses, no calf tenderness, no clubbing, no cyanosis, no edema Skin: no bruising, no jaundice, no rash Neurological: alert, No focal deficit laboratory and microbiology Laboratory Tests 08/27/25 07:02 Test 08/27/25 07:02 Range/Units Serum Glucose 114 H 74-106 mg/dL Problem List 1. Chest pain Monitor, cardiology consult, trend troponin, monitor EKG, cardiac diet 2. HLD Monitor, lipid panel 3. Morbid obesity Monitor, cardiac diet 4. CAD Monitor, cardiology consult 5. Benign essential hypertension Monitor, restart atorvastatin, antihypertensives Assessment/Plan Subjective: Patient is awake and alert. Objective: Patient is still complaining of periodic chest pain, especially when pressing down on his sternum. Troponin levels are negative. Patient was seen by Dr. Velez. Blood pressure has been controlled in the 110s. Patient has history of CAD and hypertension. Plan: Continue current treatment. Monitor on EKG. Cardiology recommendations appreciated. Discharge planning if no cardiac intervention. Plan discussed with: Patient, Other GUTIERREZ GODWIN NP Aug 27, 2025 15:13
[2025-08-27] MEDS: ATORVASTATIN 20 MG TAB PO SCH (21:50)
--- NOTE | 2025-08-28 00:35 | DVHPN2 ---
Progress Note - Dictate Date Seen: Aug 27, 2025 Medical Necessity Reason Pt with a Central, PICC or Fol: No Subjective Patient was seen and evaluated in follow up. Patient is still complaining of periodic chest pain, especially when pressing down on his sternum. Troponin levels are negative. CBC and CMP are WNL. Telemetry reviewed. vital signs Vital Sign Date Time Temp Pulse Resp B/P (MAP) Pulse Ox O2 Delivery O2 Flow Rate FiO2 08/27/25 13:00 97.3 74 17 117/84 (95) 98 97.3 08/27/25 00:17 Room Air* 0 21 Total Intake and Output 08/26/25 08/26/25 08/27/25 15:00 23:00 07:00 Intake Total 300 ml Balance 300 ml medications Current Medications Medications Dose Ordered Sig/Hansel Route Start Time Stop Time Status Last Admin Dose Admin Acetaminophen/ Hydrocodone Bitart 1 tab Q4HP PRN PO 08/26/25 15:45 08/27/25 14:45 1 TAB Temazepam 15 mg QHSP PRN PO 08/26/25 15:45 Ondansetron HCl 4 mg Q4HP PRN IV 08/26/25 15:45 Docusate Sodium 100 mg BIDPRN PRN PO 08/26/25 15:45 Enoxaparin Sodium 40 mg DAILY SC 08/27/25 10:00 08/27/25 09:48 40 MG Acetaminophen 650 mg Q6HP PRN PO 08/26/25 15:45 Morphine Sulfate 2 mg Q4HPRN PRN IV 08/26/25 15:45 Nitroglycerin 0.4 mg Q5MINP PRN SL 08/26/25 15:45 Morphine Sulfate 2 mg Q30M PRN IV 08/26/25 15:45 Aspirin 81 mg DAILY PO 08/27/25 10:00 08/27/25 09:45 81 MG Clopidogrel Bisulfate 75 mg DAILY PO 08/27/25 10:00 UNV Clopidogrel Bisulfate 75 mg DAILY PO 08/27/25 10:00 08/27/25 09:46 75 MG Metoprolol Tartrate 12.5 mg BID PO 08/26/25 22:00 08/27/25 09:45 12.5 MG Nitroglycerin 0.4 mg PRN PRN SL 08/26/25 15:45 UNV Pantoprazole Sodium 40 mg DAILY PO 08/27/25 10:00 08/27/25 09:47 40 MG Atorvastatin Calcium 40 mg QPM PO 08/27/25 22:00 UNV objective GENERAL: Alert and oriented x 3. No acute distress. Morbid obesity. EYES: PERRL, EOMI. Anicteric. HENT: Moist mucous membranes. LUNGS: Clear to auscultation bilaterally. CARDIOVASCULAR: Regular rate and rhythm. ABDOMEN: Soft, non-tender and non-distended. EXTREMITIES: No edema. NEUROLOGIC: No focal neurological deficits. SKIN: Warm, dry. laboratory and microbiology Laboratory Tests 08/27/25 07:02 Test 08/27/25 07:02 Range/Units Serum Glucose 114 H 74-106 mg/dL Problem List Chest pain. HLD Morbid obesity. CAD. Benign essential hypertension. Assessment/Plan Continued all current supportive medical care. Morphine and [place] for pain management. Aspirin, Lipitor, Plavix, Metoprolol. DVT and GI prophylactics. Nitro SL. Additional plan as per the hospital course. Plan discussed with: Patient JUSTYN ORDAZ MD Aug 27, 2025 14:54
[2025-08-28 05:00] VITALS: BP 119/90; PULSE 78; RESP 17; TEMP 97.6; O2SAT 96
[2025-08-28 07:51] VITALS: RESP 18
[2025-08-28 09:00] VITALS: BP 133/88; PULSE 79; RESP 18; TEMP 97.9; O2SAT 100
[2025-08-28] MEDS ORDERED: PANT40TA2 PO ×2 (10:49→11:22)
--- NOTE | 2025-08-28 10:49 | DVHDS2 ---
Discharge Summary Date of Admission Aug 26, 2025 at 15:34 Date of Discharge: Aug 28, 2025 Labs/Diagnostic Data: Laboratory Results Test 08/27/25 07:02 08/26/25 17:59 08/26/25 16:23 White Blood Count 7.7 10^3/uL (4.4-10.8) Red Blood Count 4.68 10^6/uL (4.5-5.90) Hemoglobin 13.8 g/dL (13.5-17.5) Hematocrit 41.3 % (41.0-53.0) Mean Corpuscular Volume 88.2 fL (80.0-100.0) Mean Corpuscular Hemoglobin 29.5 pg (28.0-32.0) Mean Corpuscular Hemoglobin Concent 33.5 g/dL (32.0-36.0) Red Cell Distribution Width 13.8 % (11.8-14.3) Platelet Count 194 10^3/uL (140-450) Mean Platelet Volume 9.1 fL (6.9-10.8) Neutrophils (%) (Auto) 55.6 % (37.0-80.0) Lymphocytes (%) (Auto) 32.0 % (10.0-50.0) Monocytes (%) (Auto) 10.7 % (0.0-12.0) Eosinophils (%) (Auto) 1.3 % (0.0-7.0) Basophils (%) (Auto) 0.4 % (0.0-2.0) Neutrophils # (Auto) 4.3 10 ^3/uL (1.6-8.6) Lymphocytes # (Auto) 2.5 10 ^3/uL (0.4-5.4) Monocytes # (Auto) 0.8 10 ^3/uL (0-1.3) Eosinophils # (Auto) 0.1 10 ^3/uL (0-0.8) Basophils # (Auto) 0 10 ^3/uL (0-0.2) Nucleated Red Blood Cells 0.1 % Sodium Level 140 mmol/L (136-145) Potassium Level 4.2 mmol/L (3.5-5.1) Chloride Level 103 mmol/L (98-107) Carbon Dioxide Level 27 mmol/L (20-31) Anion Gap 10 (5-15) Blood Urea Nitrogen 16 mg/dL (9-23) Creatinine 0.89 mg/dL (0.700-1.30) Glomerular Filtration Rate Calc 102 mL/min (>90) BUN/Creatinine Ratio 18.0 (10.0-20.0) Serum Glucose 114 mg/dL (74-106) Calcium Level 9.2 mg/dL (8.7-10.4) Total Bilirubin 0.6 mg/dL (0.2-1.0) Aspartate Amino Transferase (AST) 17 U/L (13-40) Alanine Aminotransferase (ALT) 22 U/L (7-40) Alkaline Phosphatase 53 U/L (46-116) Total Protein 6.6 g/dL (5.7-8.2) Albumin 3.9 g/dL (3.2-4.8) Urine Color Light-yellow (Yellow) Urine Clarity Clear (Clear) Urine pH 5.5 (5.0-9.0) Urine Specific [place] 1.015 (1.001-1.035) Urine Protein Negative (Negative) Urine Ketones Negative (Negative) Urine Blood Negative /uL (Negative) Urine Nitrite Negative (Negative) Urine Bilirubin Negative (Negative) Urine Urobilinogen Normal mg/dL (Negative) Urine Leukocyte Esterase Negative /uL (Negative) Urine RBC 1 /hpf (0 - 3) Urine Microscopic WBC < 1 /HPF (0-3) Urine Squamous Epithelial Cells None seen /hpf (<5) Urine Bacteria Few /hpf (None Seen) Urine Glucose Normal mg/dL (Normal) Troponin I High Sensitivity 7 ng/L (</=54) Other Laboratory Tests 08/27/25 07:02 Brief Hx & Hospital Course: 55y M who presents for chief complaint of chest pain. Pt states he has been having chest pain for the past 3-4 days. Pt states the pain is located across his chest, radiating to the L arm, constant, pressure like in nature, with no associated exacerbating or relieving factors. Pt has associated shortness of breath and nausea but denies any other symptoms. Pt has history of cardiac stent placed in the past. Pt has stable vitals in the ED. Pt denies any other symptoms at this time. Patient was admitted August 26, 2025 with complaints of chest pain. Chest pain was related to possible acid reflux and a possible resolving infectious etiology. Patient stated tenderness to palpation and troponin levels were negative. Patient was seen by cardiology. Patient stated he never had a cardiac ischemic workup. Patient is morbidly obese. BMI is 41.9. Patient's blood pressure was stable. Troponin levels were negative. Patient will continue dual antiplatelet therapy with aspirin and Plavix and continue Lipitor. I did advise him for referral for outpatient cardiology and for outpatient ischemic workup. Patient will follow-up with his PCP in 1 week. The patient received proper medical treatment and medications. Vital signs, Imaging and Laboratory Work was monitored daily. All consults recommendations were followed as provided. There were no complaints or new complaints upon discharge, all questions and concerns were answered. Patient was advised to return to the ER or call 911 if any headaches, dizziness, shortness of breath, chest pain, bleeding, fevers, or worsening of medical condition. Patient/Family was counseled about treatment plan, medications, possible side effects, patient verbalized understanding. All questions were answered to the best of my ability. The patient symptoms improved and they are okay to be DC. Condition at Discharge: Stable Final Diagnosis/Problems List Chest pain related to gerd Discharge Disposition: Home Discharge Instruct/Medications Diet: Cardiac 2g Na,low cholest Activity: No Restrictions, As Tolerated Follow Up/Referral: pcp 1 week Medications: protonix daily for GERD Scheduled Aspirin (Aspirin Adult Low Dose), 1 TAB PO DAILY, (Reported) Atorvastatin Calcium (Atorvastatin Calcium), 1 TAB PO QPM Azithromycin (Azithromycin), 250 MG PO DAILY Clopidogrel Bisulfate (Clopidogrel), 1 TAB PO DAILY, (Reported) Clopidogrel Bisulfate (Plavix), 1 TAB PO DAILY Metoprolol Tartrate (Lopressor), 0.5 TAB PO BID, (Reported) Nitroglycerin (Ntrostat Sublingual), 0.4 MG SL PRN Pantoprazole Sodium Sesquihydr (Protonix), 40 MG PO DAILY Discontinued Medications Atorvastatin Calcium (Atorvastatin Calcium), 1 TAB PO DAILY, (Reported) Clopidogrel Bisulfate (Plavix), 1 TAB PO DAILY Discharge Statement: "Patient was advised to return to the ER or call 911 if any headaches, dizziness, shortness of breath, chest pain, abdominal pain, bleeding, fevers, or worsening of medical condition. Patient was counseled about treatment plan, medications, possible side effects, patientverbalized understanding. All questions were answered to the best of my ability. This discharge took greater then 30 minutes in planning, reviewing documentation, counseling the patient, and discussing with other team members." ASSESSMENT ASSESSMENT Assessment Chest pain related to gerd GUTIERREZ GODWIN NP Aug 28, 2025 10:49
[2025-08-28] MEDS ORDERED: AZIT-43 PO (11:22)
[2025-08-28 13:00] VITALS: BP 139/101; PULSE 84; RESP 16; TEMP 97.9; O2SAT 96
[2025-08-28] MEDS ORDERED: CLOP75TA28 PO (18:31)
--- NOTE | 2025-08-29 01:10 | DVHPN2 ---
Progress Note - Dictate Date Seen: Aug 28, 2025 Medical Necessity Reason Pt with a Central, PICC or Fol: No Subjective Patient was seen and evaluated in follow-up. Patient has no new complaints at this time. Patient denies any cardiac symptoms. Patient is cardiac stable for discharge. Telemetry reviewed. vital signs Vital Sign Date Time Temp Pulse Resp B/P (MAP) Pulse Ox O2 Delivery O2 Flow Rate FiO2 08/28/25 11:30 63 136/80 08/28/25 09:00 97.9 18 100 97.9 08/28/25 07:51 Room Air* 0 21 Total Intake and Output 08/27/25 08/27/25 08/28/25 15:00 23:00 07:00 Intake Total 418 ml 300 ml Balance 418 ml 300 ml medications Current Medications Medications Dose Ordered Sig/Hansel Route Start Time Stop Time Status Last Admin Dose Admin Acetaminophen/ Hydrocodone Bitart 1 tab Q4HP PRN PO 08/26/25 15:45 08/27/25 18:46 1 TAB Temazepam 15 mg QHSP PRN PO 08/26/25 15:45 Ondansetron HCl 4 mg Q4HP PRN IV 08/26/25 15:45 Docusate Sodium 100 mg BIDPRN PRN PO 08/26/25 15:45 Enoxaparin Sodium 40 mg DAILY SC 08/27/25 10:00 08/28/25 08:44 40 MG Acetaminophen 650 mg Q6HP PRN PO 08/26/25 15:45 Morphine Sulfate 2 mg Q4HPRN PRN IV 08/26/25 15:45 Nitroglycerin 0.4 mg Q5MINP PRN SL 08/26/25 15:45 Morphine Sulfate 2 mg Q30M PRN IV 08/26/25 15:45 Aspirin 81 mg DAILY PO 08/27/25 10:00 08/28/25 08:43 81 MG Clopidogrel Bisulfate 75 mg DAILY PO 08/27/25 10:00 UNV Clopidogrel Bisulfate 75 mg DAILY PO 08/27/25 10:00 08/28/25 08:44 75 MG Metoprolol Tartrate 12.5 mg BID PO 08/26/25 22:00 08/28/25 08:43 12.5 MG Nitroglycerin 0.4 mg PRN PRN SL 08/26/25 15:45 UNV Pantoprazole Sodium 40 mg DAILY PO 08/27/25 10:00 08/28/25 08:44 40 MG Atorvastatin Calcium 40 mg HS PO 08/27/25 22:00 08/27/25 21:50 40 MG objective GENERAL: Alert and oriented x 3. No acute distress. Morbid obesity. EYES: PERRL, EOMI. Anicteric. HENT: Moist mucous membranes. LUNGS: Clear to auscultation bilaterally. CARDIOVASCULAR: Regular rate and rhythm. ABDOMEN: Soft, non-tender and non-distended. EXTREMITIES: No edema. NEUROLOGIC: No focal neurological deficits. SKIN: Warm, dry. laboratory and microbiology Laboratory Tests 08/27/25 07:02 Test 08/27/25 07:02 Range/Units Serum Glucose 114 H 74-106 mg/dL Problem List Chest pain. HLD Morbid obesity. CAD. Benign essential hypertension. Assessment/Plan Continued all current supportive medical care. Morphine and [place] for pain management. Aspirin, Plavix, Metoprolol. DVT and GI prophylactics. Nitro SL. Additional plan as per the hospital course. Plan discussed with: Patient JUSTYN ORDAZ MD Aug 28, 2025 14:37
== END 2025-08-28 14:45 | disposition home or self-care (01) | DRG 243 ==
LOC: ER 13:15 → OVERFLOW 15:34 → TELE-WESTW 08-27 21:03
PROVIDERS: ADMIT Nurse Practitioner; ATTEND Nurse Practitioner
DX: K21.9 Gastro-esophageal reflux disease without esophagitis (principal); E66.01 Morbid (severe) obesity due to excess calories; Z79.02 Long term (current) use of antithrombotics/antiplatelets; I10 Essential (primary) hypertension; I25.10 Atherosclerotic heart disease of native coronary artery without angina pectoris; E78.5 Hyperlipidemia, unspecified; Z95.5 Presence of coronary angioplasty implant and graft; I25.2 Old myocardial infarction; Z82.49 Family history of ischemic heart disease and other diseases of the circulatory system; Z68.41 Body mass index [BMI] 40.0-44.9, adult; Z79.82 Long term (current) use of aspirin
CPT/HCPCS: 36415; 71045; 80048; 80053; 81001; 84484; 85025; 93005; 99291; G0378